=== PATIENT | male | born 1945 | race Caucasian/White ===

== ENCOUNTER → 2024-12-02 15:40 | Outpatient (CLI) | payer MEDICARE, SELFPAY | PROVIDERS: Visit Provider Registered Nurse | DX: R30.0 Dysuria (principal) | CPT/HCPCS: 87077; 87086; 87186 ==

== ENCOUNTER 2025-03-03 15:00 | Inpatient (IN) | payer OTHER, SELFPAY ==
[2025-03-03] VITALS (19 sets, daily range): BP systolic 112–149; BP diastolic 64–83; PULSE 67–111; RESP 20–28; TEMP 36.4; O2SAT 95–100; BMI 28.5
--- NOTE | 2025-03-03 15:40 | DI.RAD.S_ITS ---
PROCEDURE: XR CHEST 1V INDICATIONS: altered mental status TECHNIQUE: One view of the chest was acquired. COMPARISON: None. FINDINGS: Nodular opacities bilaterally. Possible focal right mid lung consolidation. No pneumothorax or pleural effusion. Heart size normal. IMPRESSION: Bilateral pulmonary nodules and or consolidation. Further evaluation with CT chest recommended. Dictated by: Germán Tijerina M.D. on 03/03/2025 at 16:36 Approved by: Germán Tijerina M.D. on 03/03/2025 at 16:38
[2025-03-03 15:55] LABS: Base Excess VBG -18.2 mmol/L (0-4); HCO3 VBG 8 mmol/L (24-28); Oxygen Saturation VBG 75 % (70-75); PCO2 VBG 23.8 mmHg (45-50); PO2 VBG 50 mmHg (35-45); Total CO2 VBG 8 mmol/L (24-29); pH VBG 7.16 (7.33-7.43)
--- NOTE | 2025-03-03 15:55 | ED_ITS ---
HPI - General Adult General Chief complaint: Diabetic Problem Stated complaint: pcp ref-blod in urine/diabetic problem/weakness Time Seen by Provider: 03/03/25 15:55 Source: patient Mode of arrival: Family Vehicle History of Present Illness HPI narrative: 79-year-old gentleman recently diagnosed with type 2 diabetes still endorses polyuria polydipsia and has not been able to get his medicines as they are male ordered recently treated for UTI presents with elevated blood sugar, weak and sleepy. Granddaughter notices he has got a scab wound on his chest that has been there for many years that has never completely healed. Patient denies any chest pain, sorethroat, n/v/d, rectal bleeding, abd pain or back pain. Other than what is stated 14 pt ROS is negative. Related Data Allergies Allergy/AdvReac Type Severity Reaction Status Date / Time No Known Drug Allergies Allergy Unverified 12/02/24 15:55 Review of Systems Review of Systems ROS Unobtainable: All systems reviewed & are unremarkable except as noted in HPI and below Exam Narrative Exam Narrative: GENERAL: [79] year old patient appears stated age. Well-developed patient, in mild distress. HEAD: Atraumatic. Normocephalic. EYES: Pupils equal round and reactive. Extraocular motions intact. No scleral icterus. No injection or drainage. ENT: Nose without bleeding, purulent drainage. Throat without erythema, tonsillar hypertrophy or exudate. Airway patent. NECK: Trachea midline. Non tender CARDIOVASCULAR: Regular rate and rhythm without murmurs, gallops, or rubs. RESPIRATORY: Clear to auscultation. Breath sounds equal bilaterally. No wheezes, rales, or rhonchi. GASTROINTESTINAL: Abdomen soft, non-tender, nondistended. EXTREMITIES: No edema or joint tenderness. BACK: Nontender without deformity or crepitance. No flank tenderness. NEURO: AOx3. SKIN: No rash or erythema of visible areas Initial Vital Signs Initial Vital Signs: Vital Signs Temperature 97.5 F L 03/03/25 15:29 Pulse Rate 111 H 03/03/25 15:29 Respiratory Rate 28 H 03/03/25 15:29 Blood Pressure 118/77 03/03/25 15:29 Pulse Oximetry 98 03/03/25 15:29 Oxygen Delivery Method Room Air 03/03/25 15:29 Course Orders Ordered: ED Orders 03/03/25 15:39 VBG [Venous Blood Gas] STAT 03/03/25 15:40 XR chest 1V Stat EKG-12 Lead Stat 03/03/25 15:50 Complete Blood Count AUTO DIFF Stat Comprehensive Metabolic Panel Stat Ketones (Beta-Hydroxybutyrate) Stat Lactate (Lactic Acid) Stat Procalcitonin Stat Respiratory Panel (Film Array) Stat Troponin & CK Cardiac Panel Stat Venous Blood Gas Routine 03/03/25 17:02 CT chest wo con Stat 03/03/25 18:15 CMP [Comprehensive Metabolic Panel] Stat INSULIN DRIP PREMIX (Myxredlin Drip Premix) 100 unit in 100 mls @ 10.07 mls/hr IV TITRATE CHRISTEL; Protocol Last Admin: 03/03/25 17:13 Dose: 0.1 unit/kg/hr, 10.07 mls/hr Documented By: VLADIMIR Co-signed By: BILLY Sodium Chloride (Normal Saline 0.9%) 1,000 mls @ 250 mls/hr IV CONT CHRISTEL Last Admin: 03/03/25 18:10 Dose: 250 mls/hr Documented By: VLADIMIR Sodium Chloride (Normal Saline 0.9%) 1,000 mls @ 1,000 mls/hr IV BOLUS ONE Stop: 03/03/25 19:07 Last Admin: 03/03/25 18:10 Dose: 1,000 mls/hr Documented By: VLADIMIR Discontinued Medications Sodium Chloride (Normal Saline 0.9%) 1,000 mls @ 1,000 mls/hr IV BOLUS ONE Stop: 03/03/25 16:55 Last Infusion: 03/03/25 18:00 Dose: Infused Documented By: Admin: 03/03/25 16:10 Dose: 1,000 mls/hr Documented By: YAA Ceftriaxone Sodium 2,000 mg/ (Sodium Chloride) 100 mls @ 200 mls/hr IV NOW ONE Stop: 03/03/25 16:00 Last Infusion: 03/03/25 17:49 Dose: Infused Documented By: Admin: 03/03/25 16:39 Dose: 200 mls/hr Documented By: GREGOR Sodium Chloride (Normal Saline 0.9%) 1,000 mls @ 1,000 mls/hr IV BOLUS ONE Stop: 03/03/25 16:58 Last Infusion: 03/03/25 18:00 Dose: Infused Documented By: Admin: 03/03/25 17:00 Dose: 1,000 mls/hr Documented By: VLADIMIR Insulin Human Regular (Insulin Regular 100 Unit/Ml 3 Ml Vial) 10 unit IV NOW ONE Stop: 03/03/25 16:00 Last Admin: 03/03/25 16:39 Dose: 10 unit Documented By: GREGOR Co-signed By: VLADIMIR Vital Signs Vital signs: Vital Signs - 8 hr 03/03/25 15:29 03/03/25 16:14 03/03/25 16:18 Temperature 97.5 F L Pulse Rate 111 H 97 H Respiratory Rate 28 H 25 H Blood Pressure 118/77 141/66 H Pulse Oximetry 98 100 Oxygen Delivery Method Room Air 03/03/25 16:19 03/03/25 16:19 03/03/25 16:30 Temperature Pulse Rate 92 H 97 H Respiratory Rate 25 H 24 Blood Pressure 149/72 H Pulse Oximetry 100 99 Oxygen Delivery Method 03/03/25 16:58 03/03/25 16:58 03/03/25 17:00 Temperature Pulse Rate 92 H 96 H Respiratory Rate 24 22 Blood Pressure 124/64 Pulse Oximetry 100 98 Oxygen Delivery Method 03/03/25 17:00 03/03/25 17:30 03/03/25 17:30 Temperature Pulse Rate 88 Respiratory Rate 23 Blood Pressure 137/72 131/79 Pulse Oximetry 98 Oxygen Delivery Method 03/03/25 18:00 03/03/25 18:00 03/03/25 18:30 Temperature Pulse Rate 91 H Respiratory Rate 26 H Blood Pressure 112/72 121/69 Pulse Oximetry 96 Oxygen Delivery Method 03/03/25 18:30 Temperature Pulse Rate 90 Respiratory Rate 25 H Blood Pressure Pulse Oximetry 98 Oxygen Delivery Method Room Air Medical Decision Making Lab Data 03/03/25 15:50 03/03/25 18:15 Labs: Lab Results 03/03/25 03/03/25 03/03/25 Range/Units 15:48 15:50 17:34 WBC 21.3 H (4.5-11.0) X10^3/uL RBC 5.24 (4.5-5.9) X10^6/uL Hgb 15.8 (13.5-17.5) g/dL Hct 49.2 (41-53) % MCV 93.8 (80-100) fL MCH 30.1 (26-34) PG MCHC 32.1 (30-36) % RDW 13.8 (11.6-14.8) % Plt Count 177 (150-400) X10^3/uL Neut % (Auto) 88.1 H (50-75) % Lymph % (Auto) 3.6 L (25-40) % Crowley % (Auto) 8.1 (3-14) % Eos % (Auto) 0.0 L (2-4) % Baso % (Auto) 0.2 (0-2) % Neut # (Auto) 53285 H (0022-3273) /uL Lymph # (Auto) 800 L (0082-9409) /uL Crowley # (Auto) 1700 H (0-900) /uL Eos # (Auto) 0 (0-450) /uL Baso # (Auto) 100 (0-100) /uL VBG pH 7.16 L* (7.33-7.43) VBG pCO2 23.8 L (45-50) mmHg VBG pO2 50 H (35-45) mmHg VBG HCO3 8 L (24-28) mmol/L VBG Total CO2 8 L (24-29) mmol/L VBG O2 Saturation 75 (70-75) % VBG Base Excess -18.2 L (0-4) mmol/L Sodium 123 L (137-145) mmol/L Potassium 5.2 H (3.4-5.1) mmol/L Chloride 84 L (98-107) mmol/L Carbon Dioxide 6 L* (22-32) mmol/L BUN 78 H (9-20) mg/dL Creatinine 2.55 H (0.66-1.25) mg/dL Estimated GFR 25 L (>60) mL/min BUN/Creatinine Ratio 30.6 H (6-22) Glucose 795 H* (70-99) mg/dL POC Whole Bld Glucose > 500 H* > 500 H* (70-99) mg/dL Lactate 2.4 H (0.7-2.1) mmol/L Calcium 9.0 (8.4-10.2) mg/dL Total Bilirubin 1.0 (0.2-1.3) mg/dL AST 200 H (17-59) IU/L ALT 167 H (<50) IU/L Alkaline Phosphatase 108 (38-126) U/L Total Creatine Kinase 42 L (55-170) U/L Troponin I < 0.012 (0.01-0.034) ng/mL Total Protein 7.4 (6.3-8.2) g/dL Albumin 4.1 (3.5-5.0) g/dL Globulin 3.3 (1.7-4.1) g/dL Albumin/Globulin Ratio 1.2 (1.0-2.8) Procalcitonin 4.23 H (<0.5) ng/mL Ketones 12.4 H (<0.27) mmol/L Chlamy pneumoniae PCR Not detected (Not Detect) Adenovirus (PCR) Not detected (Not Detect) B. pertussis DNA (PCR) Not detected (Not Detect) B.parapertussis DNA PCR Not detected (Not Detecte) Coronavirus OC43 (PCR) Not detected (Not Detect) Coronavirus HKU1 (PCR) Not detected (Not Detect) Coronavirus 229E (PCR) Not detected (Not Detect) SARS-CoV-2 (PCR) Not detected (Not Detecte) Coronavirus NL63 (PCR) Not detected (Not Detect) Human Metapneumovir PCR Not detected (Not Detect) Influenza Type A (PCR) Not detected (Not Detect) Influenza Type B (PCR) Not detected (Not Detect) M. pneumoniae (PCR) Not detected (Not Detect) Parainfluenza 1 (PCR) Not detected (Not Detect) Parainfluenza 2 (PCR) Not detected (Not Detect) Parainfluenza 3 (PCR) Not detected (Not Detect) Parainfluenza 4 (PCR) Not detected (Not Detect) RSV (PCR) Not detected (Not Detect) Entero/Rhino (PCR) Not detected (Not Detect) 03/03/25 03/03/25 Range/Units 18:15 18:37 WBC (4.5-11.0) X10^3/uL RBC (4.5-5.9) X10^6/uL Hgb (13.5-17.5) g/dL Hct (41-53) % MCV (80-100) fL MCH (26-34) PG MCHC (30-36) % RDW (11.6-14.8) % Plt Count (150-400) X10^3/uL Neut % (Auto) (50-75) % Lymph % (Auto) (25-40) % Crowley % (Auto) (3-14) % Eos % (Auto) (2-4) % Baso % (Auto) (0-2) % Neut # (Auto) (1580-9789) /uL Lymph # (Auto) (6611-7278) /uL Crowley # (Auto) (0-900) /uL Eos # (Auto) (0-450) /uL Baso # (Auto) (0-100) /uL VBG pH (7.33-7.43) VBG pCO2 (45-50) mmHg VBG pO2 (35-45) mmHg VBG HCO3 (24-28) mmol/L VBG Total CO2 (24-29) mmol/L VBG O2 Saturation (70-75) % VBG Base Excess (0-4) mmol/L Sodium 127 L (137-145) mmol/L Potassium 4.2 (3.4-5.1) mmol/L Chloride 94 L (98-107) mmol/L Carbon Dioxide 7 L* (22-32) mmol/L BUN 78 H (9-20) mg/dL Creatinine 2.19 H (0.66-1.25) mg/dL Estimated GFR 30 L (>60) mL/min BUN/Creatinine Ratio 35.6 H (6-22) Glucose 606 H* (70-99) mg/dL POC Whole Bld Glucose > 500 H* (70-99) mg/dL Lactate 1.9 (0.7-2.1) mmol/L Calcium 8.1 L (8.4-10.2) mg/dL Total Bilirubin 0.8 (0.2-1.3) mg/dL AST 189 H (17-59) IU/L ALT 150 H (<50) IU/L Alkaline Phosphatase 72 (38-126) U/L Total Creatine Kinase (55-170) U/L Troponin I (0.01-0.034) ng/mL Total Protein 6.5 (6.3-8.2) g/dL Albumin 3.5 (3.5-5.0) g/dL Globulin 3.0 (1.7-4.1) g/dL Albumin/Globulin Ratio 1.2 (1.0-2.8) Procalcitonin (<0.5) ng/mL Ketones (<0.27) mmol/L Chlamy pneumoniae PCR (Not Detect) Adenovirus (PCR) (Not Detect) B. pertussis DNA (PCR) (Not Detect) B.parapertussis DNA PCR (Not Detecte) Coronavirus OC43 (PCR) (Not Detect) Coronavirus HKU1 (PCR) (Not Detect) Coronavirus 229E (PCR) (Not Detect) SARS-CoV-2 (PCR) (Not Detecte) Coronavirus NL63 (PCR) (Not Detect) Human Metapneumovir PCR (Not Detect) Influenza Type A (PCR) (Not Detect) Influenza Type B (PCR) (Not Detect) M. pneumoniae (PCR) (Not Detect) Parainfluenza 1 (PCR) (Not Detect) Parainfluenza 2 (PCR) (Not Detect) Parainfluenza 3 (PCR) (Not Detect) Parainfluenza 4 (PCR) (Not Detect) RSV (PCR) (Not Detect) Entero/Rhino (PCR) (Not Detect) Imaging Data CT scan - chest: Radiologist's Impression: [place] [address] CT Scan Report Signed Patient: Bharath Eduardo MR#: [id number] : 1945 Acct:[id number] Age/Sex: 79 / M Date of Service: 03/03/25 Loc: ED Accession Number: [id number] Procedure: CT chest wo con Ordering Provider: Eusebio Grissom D.O. PROCEDURE: CT CHEST WO CON INDICATIONS: xray recommendation TECHNIQUE: Noncontrast 5 mm thick sections acquired from the pulmonary apices to the posterior costophrenic angles. 1 mm lung window, 5 mm thick coronal and sagittal and 7 mm axial MIP reformats were then acquired. For radiation dose reduction, the following was used: automated exposure control, adjustment of mA and/or kV according to patient size. COMPARISON: [facility], , XR CHEST 1V, 03/03/2025, 16:17. FINDINGS: Image quality: Diagnostic. Respiratory motion. Beam hardening artifact. Lower Neck: No enlarged lymph nodes. Thyroid: No thyroid nodules which require sonographic follow up, per consensus guidelines. Axillae: No enlarged lymph nodes. Chest Wall: Shrapnel at the right upper extremity. Bones: No suspicious osseous lesion is seen. Lungs and Pleura: Accounting for the respiratory motion. Suspect small areas of platelike opacity which are most likely due to atelectasis or motion artifact. There are a few areas of bronchial wall thickening. Image acquisition is at the expiratory phase. Multiple small calcified pleural plaques. No pleural effusion. Heart: Heart size is normal. Three-vessel coronary artery calcifications. No pericardial effusion. Thoracic Vessels: Ascending aorta measures approximately 4.1 cm. Mediastinum and Taina: No enlarged lymph nodes. Esophagus: No wall thickening. No hiatal hernia. Upper Abdomen: Hepatic steatosis. IMPRESSION: Image quality is degraded by artifact. 1. Areas of bronchial wall thickening. This could be due to bronchitis. 2. Small calcified pleural plaques. 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 3. No mass or pleural effusion. No enlarged lymph nodes identified. 4. Hepatic steatosis. Dictated by: Lasha Reyes M.D. on 03/03/2025 at 18:43 Approved by: Lasha Reyes M.D. on 03/03/2025 at 18:51 ECG Data Interpretation: Wide QRS RBBB HR 97 NE undetermined QRS [address]-t wave change No previous ekg to compare MDM Narrative Medical decision making narrative: All lab work, vital signs, nurse triage note, medication list, previous ER visits, and all imaging studies reviewed. WBC 21.3 globulin 15 point platelet 177 VBG metabolic acidosis pH 7.16 bicarb of 8 CO2 23.8 base excess -18.2 sodium 123 potassium 5.2 chloride 84 chloride 6 BUN 78 creatinine 2.55 who is 795 lactic acid 2.4 AST 200 ALT 167 procalcitonin 4.23. respiratory panel normal. chest x-ray bilateral pulmonary nodule and/or consolidation recommend CT chest. Patient given normal saline 1L bolus x 2. Regular insulin 10u IV x1. Insulin gtt started. Rocephin 2g IV x1. Case d/w who has graciously accepted pt for inpatient admission Discharge Plan Departure Patient Disposition: Admitted As Inpatient Clinical Impression: DKA (diabetic ketoacidosis)
[2025-03-03 16:07] LABS: Add Manual Diff / Slide Review NO; Hematocrit 49.2 % (41-53); Hemoglobin 15.8 g/dL (13.5-17.5); Lymphocytes Absolute Auto 800 /uL (1100-4500); Mean Corpuscular HGB Conc 32.1 % (30-36); Mean Corpuscular Hemoglobin 30.1 PG (26-34); Mean Corpuscular Volume 93.8 fL (80-100); Platelet Count 177 X10^3/uL (150-400)
[2025-03-03] MEDS: SODIUM CHLORIDE 0.9% 1,000 ML 1000 ML IV ×3 (16:10→18:10)
--- NOTE | 2025-03-03 16:13 | EKG_ITS ---
[place] [address] [address] [place] [id number] Test Date: 2025-03-03 Pat Name: Bharath Eduardo Department: [facility] Room: Gender: Male Import Coordinator: ALEIDA EAST : 1945 Requested By: Order Number: [id number] Reading MD: Eusebio Wilson MD Measurements Intervals [place] Rate: 86 P: [place]: QRS: -26 QRSD: 140 T: -17 QT: 428 QTc: 512 Interpretive Statements Atrial fibrillation with premature ventricular or aberrantly conducted complexes Right bundle branch block NO PRIOR TRACING Electronically Signed On 03-04-2025 7:42:08 PST by Eusebio Wilson MD
--- NOTE | 2025-03-03 16:14 | EKG_ITS ---
[facility] [address] [place] [address] Test Date: 2025-03-03 Pat Name: Bharath Eduardo Department: [facility] Room: 230 Gender: Male Manager Market Intelligence: ALEIDA EAST : 1945 Requested By: Order Number: [id number] Reading MD: Eusebio Wilson MD Measurements Intervals [place] Rate: 97 P: [place]: QRS: -24 QRSD: 144 T: -25 QT: 356 QTc: 452 Interpretive Statements Wide QRS rhythm, probably atrial fibrillation Right bundle branch block Electronically Signed On 03-04-2025 7:42:42 PST by Eusebio Wilson MD
[2025-03-03 16:19] LABS: Alanine Aminotransferase 167 IU/L (<50); Albumin 4.1 g/dL (3.5-5.0); Albumin Globulin Ratio 1.2 (1.0-2.8); Alkaline Phosphatase 108 U/L (38-126); Blood Urea Nitrogen 78 mg/dL (9-20); Calcium 9.0 mg/dL (8.4-10.2); Chloride 84 mmol/L (98-107); Creatine Kinase 42 U/L (55-170); Estimated Glomerular Filt Rate 25 mL/min (>60); Globulin 3.3 g/dL (1.7-4.1); HEMOLYSIS < 15 (0-50); Lactate (Lactic Acid) 2.4 mmol/L (0.7-2.1); Potassium 5.2 mmol/L (3.4-5.1); Sodium 123 mmol/L (137-145); Total Protein 7.4 g/dL (6.3-8.2)
[2025-03-03 16:29] LABS: Carbon Dioxide 6 mmol/L (22-32); Glucose 795 mg/dL (70-99)
[2025-03-03 16:32] LABS: Troponin I < 0.012 ng/mL (0.01-0.034)
[2025-03-03 16:36] LABS: Procalcitonin 4.23 ng/mL (<0.5)
[2025-03-03] MEDS: INSULIN REGULAR 100 UNIT/ML 3 ML VIAL 10 UNIT IV (16:39)
[2025-03-03] MEDS: cefTRIAXone 2,000 MG in SODIUM CHLORIDE 0.9% 100 ML 200 MG IV (16:39)
[2025-03-03 16:54] LABS: Coronavirus NL 63 Not Detected (Not Detect); SARS- CoV-2 Not Detected (Not Detecte)
--- NOTE | 2025-03-03 17:02 | DI.CT.S_ITS ---
PROCEDURE: CT CHEST WO CON INDICATIONS: xray recommendation TECHNIQUE: Noncontrast 5 mm thick sections acquired from the pulmonary apices to the posterior costophrenic angles. 1 mm lung window, 5 mm thick coronal and sagittal and 7 mm axial MIP reformats were then acquired. For radiation dose reduction, the following was used: automated exposure control, adjustment of mA and/or kV according to patient size. COMPARISON: [facility], , XR CHEST 1V, 03/03/2025, 16:17. FINDINGS: Image quality: Diagnostic. Respiratory motion. Beam hardening artifact. Lower Neck: No enlarged lymph nodes. Thyroid: No thyroid nodules which require sonographic follow up, per consensus guidelines. Axillae: No enlarged lymph nodes. Chest Wall: Shrapnel at the right upper extremity. Bones: No suspicious osseous lesion is seen. Lungs and Pleura: Accounting for the respiratory motion. Suspect small areas of platelike opacity which are most likely due to atelectasis or motion artifact. There are a few areas of bronchial wall thickening. Image acquisition is at the expiratory phase. Multiple small calcified pleural plaques. No pleural effusion. Heart: Heart size is normal. Three-vessel coronary artery calcifications. No pericardial effusion. Thoracic Vessels: Ascending aorta measures approximately 4.1 cm. Mediastinum and Taina: No enlarged lymph nodes. Esophagus: No wall thickening. No hiatal hernia. Upper Abdomen: Hepatic steatosis. IMPRESSION: Image quality is degraded by artifact. 1. Areas of bronchial wall thickening. This could be due to bronchitis. 2. Small calcified pleural plaques. 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 3. No mass or pleural effusion. No enlarged lymph nodes identified. 4. Hepatic steatosis. Dictated by: Lasha Reyes M.D. on 03/03/2025 at 18:43 Approved by: Lasha Reyes M.D. on 03/03/2025 at 18:51
[2025-03-03 17:07] LABS: Ketones (Beta-Hydroxybutyrate) 12.4 mmol/L (<0.27)
[2025-03-03] MEDS: INSULIN DRIP PREMIX 100 UNIT/100 ML PLAST..BAG 10.07 UNIT IV (17:13)
[2025-03-03 17:39] LABS: Reflexed Lactate in 2 Hours Y
[2025-03-03] MEDS: SODIUM CHLORIDE 0.9% 1,000 ML 250 ML IV (18:10)
[2025-03-03 18:35] LABS: Lactate 2HR (Lactic Acid Rflx) 1.9 mmol/L (0.7-2.1)
[2025-03-03 18:38] LABS: Alanine Aminotransferase 150 IU/L (<50); Albumin 3.5 g/dL (3.5-5.0); Albumin Globulin Ratio 1.2 (1.0-2.8); Alkaline Phosphatase 72 U/L (38-126); Blood Urea Nitrogen 78 mg/dL (9-20); Calcium 8.1 mg/dL (8.4-10.2); Chloride 94 mmol/L (98-107); Estimated Glomerular Filt Rate 30 mL/min (>60); Globulin 3.0 g/dL (1.7-4.1); Potassium 4.2 mmol/L (3.4-5.1); Sodium 127 mmol/L (137-145); Total Protein 6.5 g/dL (6.3-8.2)
[2025-03-03 18:40] LABS: HEMOLYSIS 62 (0-50)
[2025-03-03 18:41] LABS: Carbon Dioxide 7 mmol/L (22-32); Glucose 606 mg/dL (70-99)
[2025-03-03] MEDS: KCL 20 MEQ IN NS 1,000 ML 150 MEQ IV (19:11)
[2025-03-03] MEDS: ONDANSETRON 4 MG/2 ML INJ IV (19:34)
--- NOTE | 2025-03-03 19:44 | CM.DANOTE ---
DCP Assessment Note: Pt is a 79yo male, resident of [facility] [place], is admitted for DKA. Pt lives in a house with his granddaughter, Mojgan. Pt's Primary Care Provider is a provider at the [facility] in [place] and insurance is Medicare. Reviewed chart and discussed with multidisciplinary team pt's medical status and initial discharge needs. Per ED Provider, pt to be admitted to ICU for IV fluids and insulin treatment. DCP met w/patient at bedside; introduced self and role. Patient was found in bed, states he is nauseated and consents to this HAND I BLOCKER calling pt daughter, Kaleigh Eduardo, ph# [phone] (updated in EMR). HAND I BLOCKER called pt daughter, Kaleigh, who states pt was diagnosed with DM-II on Monday, 02/28 and does not have a care plan in place yet. She states pt is independent at baseline, drives himself and uses no DME. Patient has no history of SNF Rehab or home health. Patient daughter states pt will have support of family (daughters) at discharge if needed. Plan: Anticipating discharge home with family support when medically cleared. CM team will follow closely for coordination of discharge plans. GUADALUPE Bacon Discharge Planning/Care Management CM Discharge Assessment Start: 03/03/25 19:42 Freq: Status: Active Protocol: Document 03/03/25 19:42 MW (Rec: 03/03/25 19:44 MW [id number]) Discharge Planning Assessment Assigned Discharge JACOB Monson Trimmer Buffing Wheel Provider [facility] DPOA/Assigned Deejay Forrest Designee Name Contact Information [phone] Advance Directives? No History Provided By Patient,Family Member,Medical Record Has Patient been No admitted in last 30 days? Prior Living House Arrangements Household Members family Type of Drives own vehicle transporation used prior to admit Independent with ADL Yes 's Is patient alert and Yes oriented? Discharge Plan Home Referrals Initiated Land Measurer Review Status In Process Please Provide Date 03/03/25 Initial DC Assessment Was Performed Next Review Type Continued Stay Review
[2025-03-03 20:21] LABS: Bilirubin Urine UA NEGATIVE (NEGATIVE); Glucose Urine UA 3+ g/dL (Negative); Ketones Urine UA 2+ (NEGATIVE); Leukocyte Esterase Urine UA TRACE (NEGATIVE); Nitrite Urine UA POSITIVE (Negative); Occult Blood Urine UA 3+ (Negative); Protein Urine UA 1+ (Negative); Specific Gravity Urine UA 1.015 (1.000-1.035); Urobilinogen Urine UA 0.2 E.U./dL (0.2); pH Urine UA 5.5 (4.5-8.0)
[2025-03-03 20:37] LABS: Appearance Urine UA Slightly Cloudy; Color Urine UA BROWN
[2025-03-03 20:42] LABS: Culture Indicated Urine Specimen Cultured
[2025-03-03 21:27] LABS: Alanine Aminotransferase 160 IU/L (<50); Albumin 3.4 g/dL (3.5-5.0); Albumin Globulin Ratio 1.1 (1.0-2.8); Alkaline Phosphatase 81 U/L (38-126); Blood Urea Nitrogen 77 mg/dL (9-20); Calcium 8.5 mg/dL (8.4-10.2); Carbon Dioxide 13 mmol/L (22-32); Chloride 100 mmol/L (98-107); Estimated Glomerular Filt Rate 36 mL/min (>60); Globulin 3.2 g/dL (1.7-4.1); Glucose 322 mg/dL (70-99); HEMOLYSIS < 15 (0-50); Potassium 4.1 mmol/L (3.4-5.1); Sodium 133 mmol/L (137-145); Total Protein 6.6 g/dL (6.3-8.2)
--- NOTE | 2025-03-03 22:16 | PC.NURSE ---
@2130 while this RN was giving report to ASBESTOS SIDING INSTALLERALEIDA Kaplan, pt in his confused state self removed all working IV's, cardiac monitoring, and found tugging on partida. pt was redirected, cardiac monitoring replaced. New IV's established before bringing pt to ICU.
--- NOTE | 2025-03-03 23:23 | PC.ADMIT ---
Addendum entered by Rosaura Hylton RN 03/04/25 06:23: Again reached out to Hospitalist at 0020, about patients unresolved agitation and received orders for restraints and IV Haldol-moderately effective, less agitated but remains restless. Continually denied pain or nausea, does have intermittent hiccups. Insulin gtt continued throughout the night-see POC CBGs, flowsheet, and Emar. Unable to complete Admit Assessment d/t agitation and confusion. Original Note: 1118 Admission Note: The patient,Bharath Eduardo,79 y/o, was given written information regarding hospital policies, unit procedures and contact persons. Patient's smoking status: . Vital Signs - 8 hr 03/03/25 15:29 03/03/25 16:14 03/03/25 16:18 Temperature 97.5 F L Pulse Rate 111 H 97 H Respiratory Rate 28 H 25 H Blood Pressure 118/77 141/66 H Pulse Oximetry 98 100 Oxygen Delivery Method Room Air 03/03/25 16:19 03/03/25 16:19 03/03/25 16:30 Temperature Pulse Rate 92 H 97 H Respiratory Rate 25 H 24 Blood Pressure 149/72 H Pulse Oximetry 100 99 Oxygen Delivery Method 03/03/25 16:58 03/03/25 16:58 03/03/25 17:00 Temperature Pulse Rate 92 H 96 H Respiratory Rate 24 22 Blood Pressure 124/64 Pulse Oximetry 100 98 Oxygen Delivery Method 03/03/25 17:00 03/03/25 17:30 03/03/25 17:30 Temperature Pulse Rate 88 Respiratory Rate 23 Blood Pressure 137/72 131/79 Pulse Oximetry 98 Oxygen Delivery Method 03/03/25 18:00 03/03/25 18:00 03/03/25 18:30 Temperature Pulse Rate 91 H Respiratory Rate 26 H Blood Pressure 112/72 121/69 Pulse Oximetry 96 Oxygen Delivery Method 03/03/25 18:30 03/03/25 19:00 03/03/25 19:00 Temperature Pulse Rate 90 84 Respiratory Rate 25 H 27 H Blood Pressure 124/70 Pulse Oximetry 98 97 Oxygen Delivery Method Room Air 03/03/25 19:30 03/03/25 19:30 03/03/25 19:45 Temperature Pulse Rate 84 Respiratory Rate 20 Blood Pressure 125/83 124/69 Pulse Oximetry 97 Oxygen Delivery Method Room Air 03/03/25 19:45 03/03/25 20:00 03/03/25 20:30 Temperature Pulse Rate 83 80 77 Respiratory Rate 25 H Blood Pressure Pulse Oximetry 97 97 96 Oxygen Delivery Method 03/03/25 21:00 03/03/25 21:30 03/03/25 21:51 Temperature Pulse Rate 70 67 79 Respiratory Rate 28 H 28 H 25 H Blood Pressure Pulse Oximetry 95 98 Oxygen Delivery Method 03/03/25 21:51 03/03/25 22:00 Temperature Pulse Rate 75 Respiratory Rate 25 H Blood Pressure 136/72 Pulse Oximetry 97 Oxygen Delivery Method Patient brought to ICU room 230 at 2200. Initially confused, mildly restless, and following commands, then became extremely agitated, pulling at IV sites (already pulled 3 out in ED) and Hutton catheter. Not redirectible. Eventually, mitts were attempted, but staff unable to place then on due to patients strength and thrashing. Soft wrist restraints placed on patient, Dr. Salas, [facility] Hospitalist notified via Webex at 2250. Stated OK with no follow up orders, notified again at 2306, no response. Sitter in room with patient, but he remains very agitated.
[2025-03-04] VITALS (33 sets, daily range): BP systolic 101–132; BP diastolic 56–80; PULSE 63–87; RESP 17–33; TEMP 36.1–36.8; O2SAT 93–100
[2025-03-04] MEDS: DEXTROSE 5%-0.45NS W/KCL 20MEQ 1,000 ML 150 MEQ IV ×5 (00:54→23:35)
[2025-03-04] MEDS: HALOPERIDOL 5 MG/ML VIAL IV (00:54)
[2025-03-04 01:38] LABS: Blood Urea Nitrogen 77 mg/dL (9-20); Calcium 8.6 mg/dL (8.4-10.2); Carbon Dioxide 14 mmol/L (22-32); Chloride 105 mmol/L (98-107); Estimated Glomerular Filt Rate 42 mL/min (>60); Glucose 120 mg/dL (70-99); HEMOLYSIS < 15 (0-50); Potassium 4.2 mmol/L (3.4-5.1); Sodium 135 mmol/L (137-145)
[2025-03-04] MEDS: INSULIN DRIP PREMIX 100 UNIT/100 ML PLAST..BAG IV (04:41)
[2025-03-04 05:48] LABS: Add Manual Diff / Slide Review NO; Hematocrit 39.8 % (41-53); Hemoglobin 13.7 g/dL (13.5-17.5); Lymphocytes Absolute Auto 500 /uL (1100-4500); Mean Corpuscular HGB Conc 34.4 % (30-36); Mean Corpuscular Hemoglobin 30.5 PG (26-34); Mean Corpuscular Volume 88.7 fL (80-100); Platelet Count 130 X10^3/uL (150-400)
[2025-03-04 06:10] LABS: Blood Urea Nitrogen 76 mg/dL (9-20); Calcium 8.5 mg/dL (8.4-10.2); Carbon Dioxide 16 mmol/L (22-32); Chloride 108 mmol/L (98-107); Estimated Glomerular Filt Rate 45 mL/min (>60); Glucose 191 mg/dL (70-99); HEMOLYSIS < 15 (0-50); Potassium 4.0 mmol/L (3.4-5.1); Sodium 135 mmol/L (137-145)
[2025-03-04 07:10] LABS: MRSA (Nasal) PCR NOT DETECTED (Not Detect)
[2025-03-04 07:28] LABS: Magnesium 2.6 mg/dL (1.6-2.3); Phosphorous 2.3 mg/dL (2.3-3.7)
[2025-03-04] MEDS: INSULIN GLARGINE 100 UNIT/ML 3ML PEN 10 UNIT SUBCUT (07:42)
[2025-03-04] MEDS: POTASSIUM PHOSPHATE 15 MMOL in SODIUM CHLORIDE 0.9% 250 ML 63.75 MMOL IV (08:55)
[2025-03-04] MEDS: PANTOPRAZOLE DR 40 MG TABLET PO (10:46)
[2025-03-04] MEDS: KCL 20 MEQ IN NS 1,000 ML 150 MEQ IV ×2 (10:46→16:10)
[2025-03-04] MEDS: ENOXAPARIN 40 MG/0.4 ML SYRINGE SUBCUT (10:46)
[2025-03-04 10:56] LABS: Blood Urea Nitrogen 71 mg/dL (9-20); Calcium 8.4 mg/dL (8.4-10.2); Carbon Dioxide 15 mmol/L (22-32); Chloride 110 mmol/L (98-107); Estimated Glomerular Filt Rate 55 mL/min (>60); Glucose 203 mg/dL (70-99); Sodium 135 mmol/L (137-145)
[2025-03-04 10:59] LABS: HEMOLYSIS 186 (0-50); Magnesium 2.6 mg/dL (1.6-2.3); Potassium 4.8 mmol/L (3.4-5.1)
--- NOTE | 2025-03-04 11:29 | DIET.CONS ---
Dietary Consultation Note Admission Date: 03/03/2025 19:08 Assessment: Screened for high BG/recent dx of DM. Per hospitalist in rounds this morning, pt will be appropriate for DM educ tomorrow. F/u tomorrow. Ht: 187.96 cm Wt: 101 kg Last BM: () MNA: Hermilo Score: 16 Diet: 03/04/25 Breakfast Carbohydrate Consistent Diet Diet Modifications: Carbohydrate level: Medium (3 CHO) Bedtime snack: Yes Reflex DM orders: No Food Texture: Level 7 - Regular Liquid Consistency: Level 0 - Thin Labs: RBC 4.49 X10^6/uL (4.5-5.9) L 03/04/25 05:30 Hgb 13.7 g/dL (13.5-17.5) 03/04/25 05:30 Hct 39.8 % (41-53) L 03/04/25 05:30 Creatinine 1.33 mg/dL (0.66-1.25) H 03/04/25 10:32 Lactate 1.9 mmol/L (0.7-2.1) 03/03/25 18:15 Electronically Signed by: Tonya Jones 03/04/25 11:29 Clinical Dietitian [address] [address]
[2025-03-04] MEDS: INSULIN LISPRO 100 UNIT/ML 3ML VIAL SUBCUT ×2 (11:33→11:36)
[2025-03-04] MEDS: INSULIN GLARGINE 100 UNIT/ML 3ML PEN 30 UNIT SUBCUT (11:49)
[2025-03-04] MEDS: INSULIN DRIP PREMIX 100 UNIT/100 ML PLAST..BAG 10.1 UNIT IV (13:05)
--- NOTE | 2025-03-04 14:17 | CM.DPNOTE ---
DCP note SLABBER LIGHT reviewed EMR per RN, off insulin drip, confused still, UTI? brand new Diabetes diagnosis Monday. per provider in morning rounds, will initiate PT/OT when cleared mentally. lives in apt above granddaughter. drafting clerk consulted to meet with granddaughter who prepares a lot of his meals. P: DCP pending mentation improvement and therapy recs. will need to be established with repossession agent prior to DC. continue to follow closely for DCP Coordination JACOB Camarena
[2025-03-04 15:12] LABS: Blood Urea Nitrogen 67 mg/dL (9-20); Calcium 8.1 mg/dL (8.4-10.2); Carbon Dioxide 16 mmol/L (22-32); Chloride 110 mmol/L (98-107); Estimated Glomerular Filt Rate 55 mL/min (>60); Glucose 263 mg/dL (70-99); HEMOLYSIS 30 (0-50); Potassium 4.3 mmol/L (3.4-5.1); Sodium 134 mmol/L (137-145)
--- NOTE | 2025-03-04 16:51 | PM.HP.1 ---
History of Present Illness History of Present Illness Date Patient Seen: 03/04/25 Time Patient Seen: 07:00 Chief complaint: pcp ref-blod in urine/diabetic problem/weakness Narrative: The patient is a 79-year-old male with no significant past medical history who presented to the emergency room with diabetic ketoacidosis. He is unable to provide any history at the time of my initial evaluation. Records were obtained from the [facility] which show that the patient had reached out to the [facility] for a 2 week history of flank pain, frequency every 30 minutes, and fatigue. He also endorsed dysuria. [facility] and the patient had a telehealth appointment yesterday. He was instructed by telehealth to present to the emergency room due to grossly abnormal labs. [facility] history of [facility] and occasional marijuana use for anxiety. The patient is noted to have atrial fibrillation, not previously diagnosed. I did speak with the patient's daughter who reports that she does not think her dad sees a physician on a regular basis. She is not aware of any chronic medical problems or any medications that he takes. She is not aware of any surgeries. Lab studies at presentation notable for WBC 21.3 with repeat this morning of 14.3. VBG with pH 7.16 pCO2 24 PO2 50, sodium 133, CO2 13, creatinine 1.9, glucose 322, AST 186, ALT 160. UA with positive nitrate, 3+ blood, 2+ ketones, 3+ glucose, 1+ protein, trace leukocyte esterase, and 10-30 white blood cells. Urine culture pending. He had a prior E coli resistant to Augmentin, Unasyn, cefazolin, cefuroxime. CT chest difficult to read due to artifact. There are bronchial wall thickening, small pleural plaques, and hepatic steatosis. Plaquing may be from asbestos exposure but will need to gather history from patient. Chest x-ray with bilateral pulmonary nodules or consolidation. [facility] Social History household members: family Meds Home Medications and Allergies Allergies Allergy/AdvReac Type Severity Reaction Status Date / Time No Known Drug Allergies Allergy Unverified 12/02/24 15:55 Review of Systems Review of Systems Narrative: At the time of my evaluation, patient had been given Haldol during the night for agitation and was unable to participate in review of systems. Exam Vital Signs (past 8 hours): - 03/04/25 09:00 03/04/25 09:00 03/04/25 09:30 Temperature Pulse Rate 78 84 Respiratory Rate 32 H 33 H Blood Pressure 123/60 Pulse Oximetry 98 97 Oxygen Delivery Method 03/04/25 10:00 03/04/25 10:00 03/04/25 10:30 Temperature Pulse Rate 77 76 Respiratory Rate 32 H 30 H Blood Pressure 123/66 Pulse Oximetry 98 98 Oxygen Delivery Method 03/04/25 10:59 03/04/25 11:00 03/04/25 11:00 Temperature Pulse Rate 76 76 Respiratory Rate 29 H 31 H Blood Pressure 120/59 L Pulse Oximetry 97 97 Oxygen Delivery Method 03/04/25 11:30 03/04/25 11:59 03/04/25 12:00 Temperature Pulse Rate 72 75 Respiratory Rate 23 26 H Blood Pressure 121/60 Pulse Oximetry 99 100 Oxygen Delivery Method 03/04/25 12:00 03/04/25 12:00 03/04/25 12:30 Temperature Pulse Rate 83 71 Respiratory Rate 28 H 31 H Blood Pressure Pulse Oximetry 99 97 Oxygen Delivery Method Room Air 03/04/25 13:00 03/04/25 13:00 03/04/25 13:10 Temperature 98.3 F Pulse Rate 71 Respiratory Rate 22 Blood Pressure 112/60 Pulse Oximetry 96 Oxygen Delivery Method 03/04/25 13:30 03/04/25 14:00 03/04/25 14:00 Temperature Pulse Rate 74 75 Respiratory Rate 26 H 25 H Blood Pressure 116/63 Pulse Oximetry 95 97 Oxygen Delivery Method 03/04/25 14:30 03/04/25 14:59 03/04/25 15:00 Temperature Pulse Rate 74 87 Respiratory Rate 24 25 H Blood Pressure 118/66 Pulse Oximetry 95 94 Oxygen Delivery Method 03/04/25 15:00 03/04/25 15:30 03/04/25 16:00 Temperature Pulse Rate 79 73 Respiratory Rate 25 H 24 Blood Pressure Pulse Oximetry 96 97 Oxygen Delivery Method Room Air 03/04/25 16:10 03/04/25 16:14 03/04/25 16:14 Temperature Pulse Rate 71 71 Respiratory Rate 20 25 H Blood Pressure 121/56 L Pulse Oximetry 93 Oxygen Delivery Method Oxygen Delivery Method Room Air Narrative Exam Narrative: Vitals reviewed Lethargic, unable to assess orientation, ill-appearing Normocephalic atraumatic, oropharynx dry Irregular rhythm, regular rate, no murmurs Clear to auscultation in bilateral anterior lung dougherty Soft, nontender, nondistended, positive bowel sounds Warm without edema Moving all 4 extremities, grossly nonfocal exam Objective Labs 03/04/25 05:30 03/04/25 14:45 Labs: Laboratory Results - last 24 hr 03/03/25 03/03/25 03/03/25 15:50 17:34 18:15 WBC RBC Hgb Hct MCV MCH MCHC RDW Plt Count Neut % (Auto) Lymph % (Auto) [place] % (Auto) Eos % (Auto) Baso % (Auto) Neut # (Auto) Lymph # (Auto) [place] # (Auto) Eos # (Auto) Baso # (Auto) Sodium 127 L Potassium 4.2 Chloride 94 L Carbon Dioxide 7 L* BUN 78 H Creatinine 2.19 H Estimated GFR 30 L BUN/Creatinine Ratio 35.6 H Glucose 606 H* POC Whole Bld Glucose > 500 H* Lactate 1.9 Calcium 8.1 L Phosphorus Magnesium Total Bilirubin 0.8 AST 189 H ALT 150 H Alkaline Phosphatase 72 Total Protein 6.5 Albumin 3.5 Globulin 3.0 Albumin/Globulin Ratio 1.2 Urine Color Urine Appearance Urine pH Ur Specific Gate Urine Protein Urine Glucose (UA) Urine Ketones Urine Occult Blood Urine Nitrate Urine Bilirubin Urine Urobilinogen Ur Leukocyte Esterase Urine RBC Urine WBC Ur Squamous Epith Cells Urine Bacteria Ur Culture Indicated? Vol Urine Centrifuged Nasal Screen MRSA (PCR) Ketones 12.4 H Chlamy pneumoniae PCR Not detected Adenovirus (PCR) Not detected B. pertussis DNA (PCR) Not detected B.parapertussis DNA PCR Not detected Coronavirus OC43 (PCR) Not detected Coronavirus HKU1 (PCR) Not detected Coronavirus 229E (PCR) Not detected SARS-CoV-2 (PCR) Not detected Coronavirus NL63 (PCR) Not detected Human Metapneumovir PCR Not detected Influenza Type A (PCR) Not detected Influenza Type B (PCR) Not detected M. pneumoniae (PCR) Not detected Parainfluenza 1 (PCR) Not detected Parainfluenza 2 (PCR) Not detected Parainfluenza 3 (PCR) Not detected Parainfluenza 4 (PCR) Not detected RSV (PCR) Not detected Entero/Rhino (PCR) Not detected 03/03/25 03/03/25 03/03/25 18:37 19:28 20:10 WBC RBC Hgb Hct MCV MCH MCHC RDW Plt Count Neut % (Auto) Lymph % (Auto) [place] % (Auto) Eos % (Auto) Baso % (Auto) Neut # (Auto) Lymph # (Auto) [place] # (Auto) Eos # (Auto) Baso # (Auto) Sodium Potassium Chloride Carbon Dioxide BUN Creatinine Estimated GFR BUN/Creatinine Ratio Glucose POC Whole Bld Glucose > 500 H* 496 H* Lactate Calcium Phosphorus Magnesium Total Bilirubin AST ALT Alkaline Phosphatase Total Protein Albumin Globulin Albumin/Globulin Ratio Urine Color Brown Urine Appearance Slightly cloudy Urine pH 5.[address] 1.015 Urine Protein 1+ H Urine Glucose (UA) 3+ H Urine Ketones 2+ H Urine Occult Blood 3+ H Urine Nitrate Positive H Urine Bilirubin Negative Urine Urobilinogen 0.2 Ur Leukocyte Esterase Trace H Urine RBC 1-5/hpf Urine WBC 10-30/hpf H Ur Squamous Epith Cells None seen Urine Bacteria Occasional (0-1) Ur Culture Indicated? Specimen cultured Vol Urine Centrifuged 10ml (spun) Nasal Screen MRSA (PCR) Ketones Chlamy pneumoniae PCR Adenovirus (PCR) B. pertussis DNA (PCR) B.parapertussis DNA PCR Coronavirus OC43 (PCR) Coronavirus HKU1 (PCR) Coronavirus 229E (PCR) SARS-CoV-2 (PCR) Coronavirus NL63 (PCR) Human Metapneumovir PCR Influenza Type A (PCR) Influenza Type B (PCR) M. pneumoniae (PCR) Parainfluenza 1 (PCR) Parainfluenza 2 (PCR) Parainfluenza 3 (PCR) Parainfluenza 4 (PCR) RSV (PCR) Entero/Rhino (PCR) 03/03/25 03/03/25 03/03/25 20:34 21:00 21:25 WBC RBC Hgb Hct MCV MCH MCHC RDW Plt Count Neut % (Auto) Lymph % (Auto) [place] % (Auto) Eos % (Auto) Baso % (Auto) Neut # (Auto) Lymph # (Auto) [place] # (Auto) Eos # (Auto) Baso # (Auto) Sodium 133 L Potassium 4.1 Chloride 100 Carbon Dioxide 13 L BUN 77 H Creatinine 1.90 H Estimated GFR 36 L BUN/Creatinine Ratio 40.5 H Glucose 322 H D POC Whole Bld Glucose > 500 H* 403 H Lactate Calcium 8.5 Phosphorus Magnesium Total Bilirubin 0.7 AST 186 H ALT 160 H Alkaline Phosphatase 81 Total Protein 6.6 Albumin 3.4 L Globulin 3.2 Albumin/Globulin Ratio 1.1 Urine Color Urine Appearance Urine pH Ur Specific Gate Urine Protein Urine Glucose (UA) Urine Ketones Urine Occult Blood Urine Nitrate Urine Bilirubin Urine Urobilinogen Ur Leukocyte Esterase Urine RBC Urine WBC Ur Squamous Epith Cells Urine Bacteria Ur Culture Indicated? Vol Urine Centrifuged Nasal Screen MRSA (PCR) Ketones Chlamy pneumoniae PCR Adenovirus (PCR) B. pertussis DNA (PCR) B.parapertussis DNA PCR Coronavirus OC43 (PCR) Coronavirus HKU1 (PCR) Coronavirus 229E (PCR) SARS-CoV-2 (PCR) Coronavirus NL63 (PCR) Human Metapneumovir PCR Influenza Type A (PCR) Influenza Type B (PCR) M. pneumoniae (PCR) Parainfluenza 1 (PCR) Parainfluenza 2 (PCR) Parainfluenza 3 (PCR) Parainfluenza 4 (PCR) RSV (PCR) Entero/Rhino (PCR) 03/03/25 03/03/25 03/04/25 22:14 23:40 00:43 WBC RBC Hgb Hct MCV MCH MCHC RDW Plt Count Neut % (Auto) Lymph % (Auto) [place] % (Auto) Eos % (Auto) Baso % (Auto) Neut # (Auto) Lymph # (Auto) [place] # (Auto) Eos # (Auto) Baso # (Auto) Sodium Potassium Chloride Carbon Dioxide BUN Creatinine Estimated GFR BUN/Creatinine Ratio Glucose POC Whole Bld Glucose 337 H 278 H 103 H D Lactate Calcium Phosphorus Magnesium Total Bilirubin AST ALT Alkaline Phosphatase Total Protein Albumin Globulin Albumin/Globulin Ratio Urine Color Urine Appearance Urine pH Ur Specific Gate Urine Protein Urine Glucose (UA) Urine Ketones Urine Occult Blood Urine Nitrate Urine Bilirubin Urine Urobilinogen Ur Leukocyte Esterase Urine RBC Urine WBC Ur Squamous Epith Cells Urine Bacteria Ur Culture Indicated? Vol Urine Centrifuged Nasal Screen MRSA (PCR) Ketones Chlamy pneumoniae PCR Adenovirus (PCR) B. pertussis DNA (PCR) B.parapertussis DNA PCR Coronavirus OC43 (PCR) Coronavirus HKU1 (PCR) Coronavirus 229E (PCR) SARS-CoV-2 (PCR) Coronavirus NL63 (PCR) Human Metapneumovir PCR Influenza Type A (PCR) Influenza Type B (PCR) M. pneumoniae (PCR) Parainfluenza 1 (PCR) Parainfluenza 2 (PCR) Parainfluenza 3 (PCR) Parainfluenza 4 (PCR) RSV (PCR) Entero/Rhino (PCR) 03/04/25 03/04/25 03/04/25 01:05 01:32 02:38 WBC RBC Hgb Hct MCV MCH MCHC RDW Plt Count Neut % (Auto) Lymph % (Auto) [place] % (Auto) Eos % (Auto) Baso % (Auto) Neut # (Auto) Lymph # (Auto) [place] # (Auto) Eos # (Auto) Baso # (Auto) Sodium 135 L Potassium 4.2 Chloride 105 Carbon Dioxide 14 L BUN 77 H Creatinine 1.65 H Estimated GFR 42 L BUN/Creatinine Ratio 46.7 H Glucose 120 H D POC Whole Bld Glucose 141 H 211 H Lactate Calcium 8.6 Phosphorus Magnesium Total Bilirubin AST ALT Alkaline Phosphatase Total Protein Albumin Globulin Albumin/Globulin Ratio Urine Color Urine Appearance Urine pH Ur Specific Gate Urine Protein Urine Glucose (UA) Urine Ketones Urine Occult Blood Urine Nitrate Urine Bilirubin Urine Urobilinogen Ur Leukocyte Esterase Urine RBC Urine WBC Ur Squamous Epith Cells Urine Bacteria Ur Culture Indicated? Vol Urine Centrifuged Nasal Screen MRSA (PCR) Ketones Chlamy pneumoniae PCR Adenovirus (PCR) B. pertussis DNA (PCR) B.parapertussis DNA PCR Coronavirus OC43 (PCR) Coronavirus HKU1 (PCR) Coronavirus 229E (PCR) SARS-CoV-2 (PCR) Coronavirus NL63 (PCR) Human Metapneumovir PCR Influenza Type A (PCR) Influenza Type B (PCR) M. pneumoniae (PCR) Parainfluenza 1 (PCR) Parainfluenza 2 (PCR) Parainfluenza 3 (PCR) Parainfluenza 4 (PCR) RSV (PCR) Entero/Rhino (PCR) 03/04/25 03/04/25 03/04/25 03:29 04:36 05:25 WBC RBC Hgb Hct MCV MCH MCHC RDW Plt Count Neut % (Auto) Lymph % (Auto) [place] % (Auto) Eos % (Auto) Baso % (Auto) Neut # (Auto) Lymph # (Auto) [place] # (Auto) Eos # (Auto) Baso # (Auto) Sodium Potassium Chloride Carbon Dioxide BUN Creatinine Estimated GFR BUN/Creatinine Ratio Glucose POC Whole Bld Glucose 217 H 173 H Lactate Calcium Phosphorus Magnesium Total Bilirubin AST ALT Alkaline Phosphatase Total Protein Albumin Globulin Albumin/Globulin Ratio Urine Color Urine Appearance Urine pH Ur Specific Gate Urine Protein Urine Glucose (UA) Urine Ketones Urine Occult Blood Urine Nitrate Urine Bilirubin Urine Urobilinogen Ur Leukocyte Esterase Urine RBC Urine WBC Ur Squamous Epith Cells Urine Bacteria Ur Culture Indicated? Vol Urine Centrifuged Nasal Screen MRSA (PCR) Not detected Ketones Chlamy pneumoniae PCR Adenovirus (PCR) B. pertussis DNA (PCR) B.parapertussis DNA PCR Coronavirus OC43 (PCR) Coronavirus HKU1 (PCR) Coronavirus 229E (PCR) SARS-CoV-2 (PCR) Coronavirus NL63 (PCR) Human Metapneumovir PCR Influenza Type A (PCR) Influenza Type B (PCR) M. pneumoniae (PCR) Parainfluenza 1 (PCR) Parainfluenza 2 (PCR) Parainfluenza 3 (PCR) Parainfluenza 4 (PCR) RSV (PCR) Entero/Rhino (PCR) 03/04/25 03/04/25 03/04/25 05:30 05:45 06:39 WBC 14.3 H RBC 4.49 L Hgb 13.7 Hct 39.8 L MCV 88.7 D MCH 30.5 MCHC 34.4 RDW 13.2 Plt Count 130 L Neut % (Auto) 87.5 H Lymph % (Auto) 3.4 L [place] % (Auto) 8.7 Eos % (Auto) 0.1 L Baso % (Auto) 0.3 Neut # (Auto) 53124 H Lymph # (Auto) 500 L [place] # (Auto) 1200 H Eos # (Auto) 0 Baso # (Auto) 0 Sodium 135 L Potassium 4.0 Chloride 108 H Carbon Dioxide 16 L BUN 76 H Creatinine 1.57 H Estimated GFR 45 L BUN/Creatinine Ratio 48.4 H Glucose 191 H POC Whole Bld Glucose 208 H 173 H Lactate Calcium 8.5 Phosphorus 2.3 Magnesium 2.6 H Total Bilirubin AST ALT Alkaline Phosphatase Total Protein Albumin Globulin Albumin/Globulin Ratio Urine Color Urine Appearance Urine pH Ur Specific Gate Urine Protein Urine Glucose (UA) Urine Ketones Urine Occult Blood Urine Nitrate Urine Bilirubin Urine Urobilinogen Ur Leukocyte Esterase Urine RBC Urine WBC Ur Squamous Epith Cells Urine Bacteria Ur Culture Indicated? Vol Urine Centrifuged Nasal Screen MRSA (PCR) Ketones Chlamy pneumoniae PCR Adenovirus (PCR) B. pertussis DNA (PCR) B.parapertussis DNA PCR Coronavirus OC43 (PCR) Coronavirus HKU1 (PCR) Coronavirus 229E (PCR) SARS-CoV-2 (PCR) Coronavirus NL63 (PCR) Human Metapneumovir PCR Influenza Type A (PCR) Influenza Type B (PCR) M. pneumoniae (PCR) Parainfluenza 1 (PCR) Parainfluenza 2 (PCR) Parainfluenza 3 (PCR) Parainfluenza 4 (PCR) RSV (PCR) Entero/Rhino (PCR) 03/04/25 03/04/25 03/04/25 07:15 09:13 09:47 WBC RBC Hgb Hct MCV MCH MCHC RDW Plt Count Neut % (Auto) Lymph % (Auto) [place] % (Auto) Eos % (Auto) Baso % (Auto) Neut # (Auto) Lymph # (Auto) [place] # (Auto) Eos # (Auto) Baso # (Auto) Sodium Potassium Chloride Carbon Dioxide BUN Creatinine Estimated GFR BUN/Creatinine Ratio Glucose POC Whole Bld Glucose 177 H 194 H 205 H Lactate Calcium Phosphorus Magnesium Total Bilirubin AST ALT Alkaline Phosphatase Total Protein Albumin Globulin Albumin/Globulin Ratio Urine Color Urine Appearance Urine pH Ur Specific Gate Urine Protein Urine Glucose (UA) Urine Ketones Urine Occult Blood Urine Nitrate Urine Bilirubin Urine Urobilinogen Ur Leukocyte Esterase Urine RBC Urine WBC Ur Squamous Epith Cells Urine Bacteria Ur Culture Indicated? Vol Urine Centrifuged Nasal Screen MRSA (PCR) Ketones Chlamy pneumoniae PCR Adenovirus (PCR) B. pertussis DNA (PCR) B.parapertussis DNA PCR Coronavirus OC43 (PCR) Coronavirus HKU1 (PCR) Coronavirus 229E (PCR) SARS-CoV-2 (PCR) Coronavirus NL63 (PCR) Human Metapneumovir PCR Influenza Type A (PCR) Influenza Type B (PCR) M. pneumoniae (PCR) Parainfluenza 1 (PCR) Parainfluenza 2 (PCR) Parainfluenza 3 (PCR) Parainfluenza 4 (PCR) RSV (PCR) Entero/Rhino (PCR) 03/04/25 03/04/25 03/04/25 10:32 11:16 12:24 WBC RBC Hgb Hct MCV MCH MCHC RDW Plt Count Neut % (Auto) Lymph % (Auto) [place] % (Auto) Eos % (Auto) Baso % (Auto) Neut # (Auto) Lymph # (Auto) [place] # (Auto) Eos # (Auto) Baso # (Auto) Sodium 135 L Potassium 4.8 Chloride 110 H Carbon Dioxide 15 L BUN 71 H Creatinine 1.33 H Estimated GFR 55 L BUN/Creatinine Ratio 53.4 H Glucose 203 H POC Whole Bld Glucose 262 H 292 H Lactate Calcium 8.4 Phosphorus Magnesium 2.6 H Total Bilirubin AST ALT Alkaline Phosphatase Total Protein Albumin Globulin Albumin/Globulin Ratio Urine Color Urine Appearance Urine pH Ur Specific Gate Urine Protein Urine Glucose (UA) Urine Ketones Urine Occult Blood Urine Nitrate Urine Bilirubin Urine Urobilinogen Ur Leukocyte Esterase Urine RBC Urine WBC Ur Squamous Epith Cells Urine Bacteria Ur Culture Indicated? Vol Urine Centrifuged Nasal Screen MRSA (PCR) Ketones Chlamy pneumoniae PCR Adenovirus (PCR) B. pertussis DNA (PCR) B.parapertussis DNA PCR Coronavirus OC43 (PCR) Coronavirus HKU1 (PCR) Coronavirus 229E (PCR) SARS-CoV-2 (PCR) Coronavirus NL63 (PCR) Human Metapneumovir PCR Influenza Type A (PCR) Influenza Type B (PCR) M. pneumoniae (PCR) Parainfluenza 1 (PCR) Parainfluenza 2 (PCR) Parainfluenza 3 (PCR) Parainfluenza 4 (PCR) RSV (PCR) Entero/Rhino (PCR) 03/04/25 03/04/25 03/04/25 13:53 14:45 15:04 WBC RBC Hgb Hct MCV MCH MCHC RDW Plt Count Neut % (Auto) Lymph % (Auto) [place] % (Auto) Eos % (Auto) Baso % (Auto) Neut # (Auto) Lymph # (Auto) [place] # (Auto) Eos # (Auto) Baso # (Auto) Sodium 134 L Potassium 4.3 Chloride 110 H Carbon Dioxide 16 L BUN 67 H Creatinine 1.33 H Estimated GFR 55 L BUN/Creatinine Ratio 50.4 H Glucose 263 H POC Whole Bld Glucose 316 H 254 H Lactate Calcium 8.1 L Phosphorus Magnesium Total Bilirubin AST ALT Alkaline Phosphatase Total Protein Albumin Globulin Albumin/Globulin Ratio Urine Color Urine Appearance Urine pH Ur Specific Gate Urine Protein Urine Glucose (UA) Urine Ketones Urine Occult Blood Urine Nitrate Urine Bilirubin Urine Urobilinogen Ur Leukocyte Esterase Urine RBC Urine WBC Ur Squamous Epith Cells Urine Bacteria Ur Culture Indicated? Vol Urine Centrifuged Nasal Screen MRSA (PCR) Ketones Chlamy pneumoniae PCR Adenovirus (PCR) B. pertussis DNA (PCR) B.parapertussis DNA PCR Coronavirus OC43 (PCR) Coronavirus HKU1 (PCR) Coronavirus 229E (PCR) SARS-CoV-2 (PCR) Coronavirus NL63 (PCR) Human Metapneumovir PCR Influenza Type A (PCR) Influenza Type B (PCR) M. pneumoniae (PCR) Parainfluenza 1 (PCR) Parainfluenza 2 (PCR) Parainfluenza 3 (PCR) Parainfluenza 4 (PCR) RSV (PCR) Entero/Rhino (PCR) 03/04/25 16:14 WBC RBC Hgb Hct MCV MCH MCHC RDW Plt Count Neut % (Auto) Lymph % (Auto) [place] % (Auto) Eos % (Auto) Baso % (Auto) Neut # (Auto) Lymph # (Auto) [place] # (Auto) Eos # (Auto) Baso # (Auto) Sodium Potassium Chloride Carbon Dioxide BUN Creatinine Estimated GFR BUN/Creatinine Ratio Glucose POC Whole Bld Glucose 183 H Lactate Calcium Phosphorus Magnesium Total Bilirubin AST ALT Alkaline Phosphatase Total Protein Albumin Globulin Albumin/Globulin Ratio Urine Color Urine Appearance Urine pH Ur Specific Gate Urine Protein Urine Glucose (UA) Urine Ketones Urine Occult Blood Urine Nitrate Urine Bilirubin Urine Urobilinogen Ur Leukocyte Esterase Urine RBC Urine WBC Ur Squamous Epith Cells Urine Bacteria Ur Culture Indicated? Vol Urine Centrifuged Nasal Screen MRSA (PCR) Ketones Chlamy pneumoniae PCR Adenovirus (PCR) B. pertussis DNA (PCR) B.parapertussis DNA PCR Coronavirus OC43 (PCR) Coronavirus HKU1 (PCR) Coronavirus 229E (PCR) SARS-CoV-2 (PCR) Coronavirus NL63 (PCR) Human Metapneumovir PCR Influenza Type A (PCR) Influenza Type B (PCR) M. pneumoniae (PCR) Parainfluenza 1 (PCR) Parainfluenza 2 (PCR) Parainfluenza 3 (PCR) Parainfluenza 4 (PCR) RSV (PCR) Entero/Rhino (PCR) Assessment & Plan Assessment & Plan narrative: 79-year-old male with no significant past medical history aside from PTSD, [facility], who presented with diabetic ketoacidosis, new diagnosis of diabetes mellitus, and new atrial fibrillation. Diabetes mellitus, likely insulin dependent Diabetic ketoacidosis Insulin drip protocol Transitioned to subcu insulin when acidosis resolves Continue to monitor labs and replete electrolytes as needed Diabetes education and nutrition education when patient able to participate Anticipate he will need to discharge on insulin not oral agents Atrial fibrillation, new Unclear how long patient has been in atrial fibrillation. Initiate metoprolol, low-dose Initiate Eliquis Echocardiogram UTI, probable Leukocytosis Urinalysis abnormal Follow cultures Ceftriaxone ANU Likely secondary to volume depletion from osmotic diuresis due to hyperglycemia, improved overnight. Encourage p.o. fluids Continue IV fluids while on insulin GTT Reassess in the morning Elevated transaminases AST 186, AST 160. Bilirubin normal. No prior labs for comparison. Patient does not consume alcohol per his daughter. He does have steatosis on imaging so the elevated transaminases may be due to that. Elevation could also be due to ketoacidosis and the underlying infection. Recheck in the morning Time-Based Coding :: 80 minutes spent with patient and on the chart (including review of chart, obtaining history, exam, reviewing outside data, placing orders, documenting exam and treatment plan, and counseling patient)
--- NOTE | 2025-03-04 18:03 | PC.NURSE ---
Pt was initially titrated off insulin at beginning of shift, blood sugars continued to climb so the decision was made to restart. Good appetite. Pt sleepy most of shift, more alert and following directions. Restraints dced. Family at bedside. [place] intact with good output. Afib with rate control
[2025-03-04 18:46] LABS: Blood Urea Nitrogen 63 mg/dL (9-20); Calcium 7.9 mg/dL (8.4-10.2); Carbon Dioxide 16 mmol/L (22-32); Chloride 112 mmol/L (98-107); Estimated Glomerular Filt Rate 57 mL/min (>60); Glucose 180 mg/dL (70-99); HEMOLYSIS 21 (0-50); Potassium 4.0 mmol/L (3.4-5.1); Sodium 135 mmol/L (137-145)
--- NOTE | 2025-03-04 19:14 | DI.ECHO.S_ITS ---
[facility] : : [address] : : [place] : : [id number] : : Phone: [phone] Echocardiogram Report + + :Name: JCARLOS AGUAYO Study Date: 03/05/2025 Height: 74 in : :[facility] ReadingLocation: Weight: 220 lb : : Gender: Male BSA: 2.3 m2 : :: 1945 Age: 79 yrs BP: 139/63 mmHg: :Reason For Study: NEW ONSET AFIB : :Ordering Physician: LYNN ESCALANTE : : Performed By: Vasquez Kimball : :Referring: UNSPECIFIED : + + Interpretation Summary The left ventricle is normal in size. Left ventricular systolic function is mildly reduced. The ejection fraction is estimated to be 45-50%. Diastolic function could not be accurately assessed due to atrial fibrillation. The right ventricle is mildly dilated. Right ventricular systolic function is mildly reduced. There is no significant valvular heart disease. The aortic root is mildly dilated. Procedure: A two-dimensional transthoracic echocardiogram with color flow and Doppler was performed. The study quality was technically difficult. A contrast injection of Definity was performed to improve assessment of LV function. There is no prior echocardiogram noted for this patient. The patient was in atrial fibrillation with heart rates between 53-76 bpm during the exam. Left Ventricle: The left ventricle is normal in size. There is normal left ventricular wall thickness. There is no ventricular septal defect visualized. Left ventricular systolic function is mildly reduced. The ejection fraction is estimated to be 45-50%. Diastolic function could not be accurately assessed due to atrial fibrillation. Right Ventricle: The right ventricle is mildly dilated. Right ventricular systolic function is mildly reduced. Atria: The left atrial size is normal. The right atrium is mildly dilated. There is no Doppler evidence for an interatrial shunt. Mitral Valve: The mitral valve leaflets appear mildly thickened. The mitral valve leaflets are mildly calcified. There is mild mitral annular calcification. There is no mitral regurgitation. Aortic Valve: The aortic valve is trileaflet. The aortic valve is mildly calcified. No aortic regurgitation is present. Tricuspid Valve: The tricuspid valve is not well visualized, but is grossly normal. There is a trace or physiologic amount of tricuspid regurgitation. Pulmonic Valve: The pulmonic valve is not well seen, but is grossly normal. There is trace pulmonic regurgitation. There is no significant valvular heart disease. Great Vessels: The aortic root is mildly dilated. The ascending aorta is at the upper limits of normal in size. The pulmonary artery is not well visualized, but is probably normal size. The IVC is dilated, but has some respiratory collapse suggesting high central venous pressure. Pericardium/ Pleura There is no pericardial effusion. There is no pleural effusion. MMode/2D Measurements & Calculations LVIDd: 4.3 cm LVOT diam: 2.0 cm LVIDs: 3.1 cm Ao root diam: 4.1 cm FS: 28.8 % asc Aorta Diam: 3.6 cm EPSS: 0.61 cm IVSd: 0.94 cm LVPWd: 0.94 cm LV banks. diameter/BSA (cm/m^2): 1.9 LV sys. diameter/BSA (cm/m^2): 1.4 LA A2 area: 15.8 cm2 RA long axis: 6.2 cm LA A4 area: 18.6 cm2 RA area: 22.3 cm2 LA length (vol): 5.2 cm RA vol: 67.5 ml LA vol: 47.8 ml RA : 29.8 ml/m2 LA vol index: 21.1 ml/m2 IVC diam: 2.1 cm RVD1 (basal): 4.6 cm RVD2 (mid): 3.4 cm TAPSE: 1.6 cm Doppler Measurements & Calculations Ao V2 max: 135.7 cm/sec LVOT Max Rayray: 81.9 cm/sec Ao V2 mean: 88.8 cm/sec LV V1 max P.7 mmHg Ao max P.4 mmHg LV V1 VTI: 11.9 cm Ao mean P.6 mmHg YUE(I,D): 1.9 cm2 Ao V2 VTI: 19.6 cm YUE(V,D): 1.9 cm2 sev ratio: 0.60 YUE indexed to BSA (cm^2/m^2): 0.86 MV E max rayray: 85.1 cm/sec TR max rayray: 248.1 cm/sec MV A max rayray: 19.2 cm/sec TR max P.6 mmHg MV E/A: 4.4 PA V2 max: 115.2 cm/sec Med Peak E' Rayray: 8.7 cm/sec PA V2 mean: 85.8 cm/sec E/E' med: 9.8 PA mean P.2 mmHg Lat Peak E' Rayray: 10.1 cm/sec PA pr(Accel): 37.9 mmHg E/E' lat: 8.5 E/e' average: 9.1 MV dec time: 0.24 sec SV(LVOT): 38.0 ml Reading Physician:12:55 PM
[2025-03-04] MEDS: APIXABAN 5 MG TABLET PO (20:47)
[2025-03-04] MEDS: METOPROLOL IR 25 MG TABLET PO (20:47)
[2025-03-04] MEDS: INSULIN DRIP PREMIX 100 UNIT/100 ML PLAST..BAG 5.1 UNIT IV (22:16)
[2025-03-04 22:45] LABS: Blood Urea Nitrogen 58 mg/dL (9-20); Calcium 8.5 mg/dL (8.4-10.2); Carbon Dioxide 19 mmol/L (22-32); Chloride 111 mmol/L (98-107); Estimated Glomerular Filt Rate 55 mL/min (>60); Glucose 114 mg/dL (70-99); HEMOLYSIS < 15 (0-50); Potassium 4.1 mmol/L (3.4-5.1); Sodium 138 mmol/L (137-145)
[2025-03-05] VITALS (44 sets, daily range): BP systolic 88–134; BP diastolic 56–72; PULSE 53–79; RESP 16–36; TEMP 36.1–36.6; O2SAT 93–98
[2025-03-05 05:25] LABS: Hemoglobin A1C% w Est Avg Glu 10.5 % (4.0-6.0)
[2025-03-05 05:28] LABS: Phosphorous 2.6 mg/dL (2.3-3.7)
[2025-03-05 05:30] LABS: Alanine Aminotransferase 89 IU/L (<50); Albumin 2.5 g/dL (3.5-5.0); Albumin Globulin Ratio 0.9 (1.0-2.8); Alkaline Phosphatase 62 U/L (38-126); Blood Urea Nitrogen 53 mg/dL (9-20); Calcium 7.9 mg/dL (8.4-10.2); Carbon Dioxide 17 mmol/L (22-32); Chloride 110 mmol/L (98-107); Cholesterol 61 mg/dL (140-199); Estimated Glomerular Filt Rate 58 mL/min (>60); Globulin 2.7 g/dL (1.7-4.1); Glucose 288 mg/dL (70-99); HDL Cholesterol 16 mg/dL (40-60); HEMOLYSIS < 15 (0-50); Potassium 4.8 mmol/L (3.4-5.1); Sodium 134 mmol/L (137-145); Total Protein 5.2 g/dL (6.3-8.2); Triglycerides 81 mg/dL (35-150)
--- NOTE | 2025-03-05 06:46 | PC.NURSE ---
pt a&ox2-3, restless at times, cooperative with care, CBG as ordered, insulin drip titrated per protocol, MD notified when gap closed, orders to stop then restarted when CBG increased per MD orders, afib 45-60s, bed alarm on, call bernal within reach, care ongoing
[2025-03-05] MEDS: PANTOPRAZOLE DR 40 MG TABLET PO (09:15)
[2025-03-05] MEDS: APIXABAN 5 MG TABLET PO ×2 (09:15→21:12)
[2025-03-05] MEDS: METOPROLOL IR 25 MG TABLET 12.5 MG PO ×2 (09:15→21:17)
--- NOTE | 2025-03-05 11:12 | DIET.CONS ---
Dietary Consultation Note Admission Date: 03/03/2025 19:08 Assessment: Met with pt and grandrk Redd at bedside. Tramaine confirms if pt is d/c home they will be helping with meals. Reports struggles may be reducing dessert portions. Ht: 187.96 cm Wt: 101 kg Last BM: () MNA: Hermilo Score: 20 Diet: 03/04/25 Breakfast Carbohydrate Consistent Diet Diet Modifications: Carbohydrate level: Medium (3 CHO) Bedtime snack: Yes Reflex DM orders: No Food Texture: Level 7 - Regular Liquid Consistency: Level 0 - Thin Nutrition Percent Meal Consumed 75% 03/04/25 18:03 Percent Meal Consumed 35 03/04/25 12:36 Labs: RBC 4.49 X10^6/uL (4.5-5.9) L 03/04/25 05:30 Hgb 13.7 g/dL (13.5-17.5) 03/04/25 05:30 Hct 39.8 % (41-53) L 03/04/25 05:30 Creatinine 1.27 mg/dL (0.66-1.25) H 03/05/25 04:40 Hemoglobin A1c 10.5 % (4.0-6.0) H 03/05/25 04:40 Lactate 1.9 mmol/L (0.7-2.1) 03/03/25 18:15 Nutrition Diagnosis: Altered nutrition related lab values r/t endocrine dysfunction as evidenced by A1c 10.5% Interventions: -Plate Method, impact of macronutrients on blood sugar, meal timing, carbohydrate counting, pairing macronutrients and spreading out carbohydrates for better blood glucose management -Recommended servings for carbohydrates at meals and snacks -BG numbers and A1c numbers to aim for from the ADA -Treatment for hypoglycemia in case pt is d/c on insulin and signs/symptoms with handout -Label reading for carbs with handout -Discussed as desired can have referral from PCP to OP DM educ and provided information EER: 45-60 g CHO at meals Monitoring/Evaluations: BG Electronically Signed by: Tonya Jones 03/05/25 11:12 Clinical Dietitian [address] [id number]
[2025-03-05] MEDS: SUCRALFATE 1 GM/10 ML ORAL SUSP PO ×2 (12:39→16:52)
[2025-03-05] MEDS: INSULIN GLARGINE 100 UNIT/ML 3ML PEN 50 UNIT SUBCUT (13:21)
[2025-03-05] MEDS: INSULIN LISPRO 100 UNIT/ML 3ML VIAL SUBCUT ×2 (16:53→21:13)
[2025-03-05] MEDS: INSULIN LISPRO 100 UNIT/ML 3ML VIAL 6 UNIT SUBCUT (16:53)
--- NOTE | 2025-03-05 18:15 | P.PN_ITS ---
Subjective Subjective Date Patient Seen: 03/05/25 Time Patient Seen: 08:00 Interval history: Chief complaint: Encephalopathy and diabetic ketoacidosis History of present illness: 03/04: 79-year-old male with no significant past medical history who presented to the emergency room with diabetic ketoacidosis. He is unable to provide any history at the time of my initial evaluation. Records were obtained from the [facility] which show that [facility] of flank pain, frequency every 30 minutes, and fatigue. He also endorsed dysuria. [facility] on Monday and the patient had a telehealth appointment yesterday. He was instructed by telehealth to present to the emergency room due to grossly abnormal labs. [facility] documented history of PTSD and occasional marijuana use for anxiety. The patient is noted to have atrial fibrillation, not previously diagnosed. I did speak with the patient's daughter who reports that she does not think her dad sees a physician on a regular basis. She is not aware of any chronic medical problems or any medications that he takes. She is not aware of any surgeries. Lab studies at presentation notable for WBC 21.3 with repeat this morning of 14.3. VBG with pH 7.16 pCO2 24 PO2 50, sodium 133, CO2 13, creatinine 1.9, glucose 322, AST 186, ALT 160. UA with positive nitrate, 3+ blood, 2+ ketones, 3+ glucose, 1+ protein, trace leukocyte esterase, and 10-30 white blood cells. Urine culture pending. He had a prior E coli resistant to Augmentin, Unasyn, cefazolin, cefuroxime. CT chest difficult to read due to artifact. There are bronchial wall thickening, small pleural plaques, and hepatic steatosis. Plaquing may be from asbestos exposure but will need to gather history from patient. Chest x-ray with bilateral pulmonary nodules or consolidation. Hospital course: 03/05: Patient is still confused but more cogent 4. Still has not close the anion gap infusion had to be resumed case was discussed with pharmacy starting on basal bolus insulin based on insulin requirements we will need large doses of basal insulin Review of systems: No rigors chills fevers Whole cough shortness for breath No chest pain palpitations No abdominal pain nausea vomiting Appetite is good Physical examination: Very pleasant elderly male Somewhat confused disoriented but is able to carry conversation HEENT unremarkable Heart rate and rhythm regular Lungs clear Abdomen nontender Extremities no edema No motor deficits Assessment and plan: 79-year-old male with no significant past medical history aside from PTSD, normally followed at the [facility], who presented with diabetic ketoacidosis, new diagnosis of diabetes mellitus, and new atrial fibrillation. Diabetes mellitus, likely insulin dependent Diabetic ketoacidosis * Insulin drip protocol * Transitioned to subcu insulin when acidosis resolves * Continue to monitor labs and replete electrolytes as needed * Diabetes education and nutrition education when patient able to participate * Anticipate he will need to discharge on insulin not oral agents Atrial fibrillation, new Unclear how long patient has been in atrial fibrillation. * Initiate metoprolol, low-dose * Initiate Eliquis * Echocardiogram UTI, probable Leukocytosis Urinalysis abnormal * Follow cultures * Ceftriaxone ANU Likely secondary to volume depletion from osmotic diuresis due to hyperglycemia, improved overnight. * Encourage p.o. fluids * Continue IV fluids while on insulin GTT * Reassess in the morning Elevated transaminases AST 186, AST 160. Bilirubin normal. No prior labs for comparison. Patient does not consume alcohol per his daughter. He does have steatosis on imaging so the elevated transaminases may be due to that. Elevation could also be due to ketoacidosis and the underlying infection. * Recheck in the morning DVT prophylax 6 * On Eliquis Code status: * Full code blue Time-Based Coding: * 55 minutes were evaluated in the management this patient including [id number] evaluation review of previous records review of objective findings discussion of case plan with care team including pharmacy Exam Vital Signs (past 8 hours): - 03/05/25 10:30 03/05/25 11:00 03/05/25 11:00 Temperature Pulse Rate 63 57 L Respiratory Rate 20 22 Blood Pressure 109/65 Pulse Oximetry 96 96 Oxygen Delivery Method Oxygen Flow Rate 03/05/25 11:30 03/05/25 11:38 03/05/25 12:00 Temperature 97.8 F Pulse Rate 59 L Respiratory Rate 25 H Blood Pressure 107/62 Pulse Oximetry 97 Oxygen Delivery Method Oxygen Flow Rate 03/05/25 12:00 03/05/25 12:00 03/05/25 12:30 Temperature Pulse Rate 59 L 62 Respiratory Rate 22 30 H Blood Pressure Pulse Oximetry 94 97 Oxygen Delivery Method Room Air Oxygen Flow Rate 03/05/25 13:00 03/05/25 13:00 03/05/25 13:30 Temperature Pulse Rate 62 63 Respiratory Rate 24 22 Blood Pressure 111/72 Pulse Oximetry 96 95 Oxygen Delivery Method Oxygen Flow Rate 03/05/25 14:00 03/05/25 14:00 03/05/25 14:30 Temperature Pulse Rate 62 62 Respiratory Rate 20 20 Blood Pressure 102/66 Pulse Oximetry 95 96 Oxygen Delivery Method Oxygen Flow Rate 03/05/25 15:00 03/05/25 15:01 03/05/25 15:01 Temperature Pulse Rate 60 61 Respiratory Rate 20 20 Blood Pressure 133/59 L Pulse Oximetry 96 97 Oxygen Delivery Method Oxygen Flow Rate 03/05/25 15:30 03/05/25 16:00 03/05/25 16:00 Temperature 97.9 F Pulse Rate 60 60 Respiratory Rate 19 21 Blood Pressure 114/68 Pulse Oximetry 96 95 Oxygen Delivery Method Oxygen Flow Rate 0 03/05/25 16:00 03/05/25 16:30 03/05/25 17:00 Temperature Pulse Rate 62 Respiratory Rate 27 H Blood Pressure 134/71 Pulse Oximetry 95 Oxygen Delivery Method Room Air Oxygen Flow Rate 03/05/25 17:00 03/05/25 17:30 Temperature Pulse Rate 63 59 L Respiratory Rate 30 H 24 Blood Pressure Pulse Oximetry 97 96 Oxygen Delivery Method Oxygen Flow Rate Oxygen Delivery Method Room Air Oxygen Flow Rate 0 Objective Labs 03/04/25 05:30 03/05/25 04:40 Labs: Laboratory Results - last 24 hr 03/04/25 03/04/25 03/04/25 18:10 19:15 20:29 Sodium 135 L Potassium 4.0 Chloride 112 H Carbon Dioxide 16 L BUN 63 H Creatinine 1.28 H Estimated GFR 57 L BUN/Creatinine Ratio 49.2 H Glucose 180 H POC Whole Bld Glucose 191 H 167 H Hemoglobin A1c Calcium 7.9 L Phosphorus Total Bilirubin AST ALT Alkaline Phosphatase Total Protein Albumin Globulin Albumin/Globulin Ratio Triglycerides Cholesterol LDL Cholesterol, Calc HDL Cholesterol 03/04/25 03/04/25 03/04/25 22:15 22:18 23:59 Sodium 138 Potassium 4.1 Chloride 111 H Carbon Dioxide 19 L BUN 58 H Creatinine 1.33 H Estimated GFR 55 L BUN/Creatinine Ratio 43.6 H Glucose 114 H POC Whole Bld Glucose 116 H 152 H Hemoglobin A1c Calcium 8.5 Phosphorus Total Bilirubin AST ALT Alkaline Phosphatase Total Protein Albumin Globulin Albumin/Globulin Ratio Triglycerides Cholesterol LDL Cholesterol, Calc HDL Cholesterol 03/05/25 03/05/25 03/05/25 01:58 04:40 06:12 Sodium 134 L Potassium 4.8 Chloride 110 H Carbon Dioxide 17 L BUN 53 H Creatinine 1.27 H Estimated GFR 58 L BUN/Creatinine Ratio 41.7 H Glucose 288 H D POC Whole Bld Glucose 154 H 279 H D 306 H Hemoglobin A1c 10.5 H Calcium 7.9 L Phosphorus 2.6 Total Bilirubin 0.9 AST 82 H ALT 89 H Alkaline Phosphatase 62 Total Protein 5.2 L Albumin 2.5 L Globulin 2.7 Albumin/Globulin Ratio 0.9 L Triglycerides 81 Cholesterol 61 L LDL Cholesterol, Calc 29 HDL Cholesterol 16 L 03/05/25 03/05/25 03/05/25 07:36 09:42 11:32 Sodium Potassium Chloride Carbon Dioxide BUN Creatinine Estimated GFR BUN/Creatinine Ratio Glucose POC Whole Bld Glucose 233 H 169 H 124 H Hemoglobin A1c Calcium Phosphorus Total Bilirubin AST ALT Alkaline Phosphatase Total Protein Albumin Globulin Albumin/Globulin Ratio Triglycerides Cholesterol LDL Cholesterol, Calc HDL Cholesterol 03/05/25 03/05/25 13:39 16:45 Sodium Potassium Chloride Carbon Dioxide BUN Creatinine Estimated GFR BUN/Creatinine Ratio Glucose POC Whole Bld Glucose 219 H 269 H Hemoglobin A1c Calcium Phosphorus Total Bilirubin AST ALT Alkaline Phosphatase Total Protein Albumin Globulin Albumin/Globulin Ratio Triglycerides Cholesterol LDL Cholesterol, Calc HDL Cholesterol PFSH Social History household members: family Assessment & Plan Time-Based Coding :: [TOTAL MINUTES] spent with patient and on the chart (including review of chart, obtaining history, exam, reviewing outside data, placing orders, documenting exam and treatment plan, and counseling patient) on [DATE].
[2025-03-06] VITALS (64 sets, daily range): BP systolic 90–172; BP diastolic 63–90; PULSE 53–78; RESP 12–37; TEMP 35.7–36.8; O2SAT 91–98
[2025-03-06] MEDS: SUCRALFATE 1 GM/10 ML ORAL SUSP PO ×4 (00:17→17:13)
[2025-03-06] MEDS: ACETAMINOPHEN 325 MG TABLET 650 MG PO (00:17)
[2025-03-06] MEDS: APIXABAN 5 MG TABLET PO ×2 (08:05→21:06)
[2025-03-06] MEDS: METOPROLOL IR 25 MG TABLET 12.5 MG PO (08:05)
[2025-03-06] MEDS: INSULIN GLARGINE 100 UNIT/ML 3ML PEN 60 UNIT SUBCUT (08:05)
[2025-03-06] MEDS: PANTOPRAZOLE DR 40 MG TABLET PO (08:05)
[2025-03-06] MEDS: INSULIN LISPRO 100 UNIT/ML 3ML VIAL 8 UNIT SUBCUT (08:06)
[2025-03-06] MEDS: INSULIN LISPRO 100 UNIT/ML 3ML VIAL SUBCUT ×2 (08:07→12:19)
--- NOTE | 2025-03-06 11:00 | OT.IP.EVAL ---
Current Diagnoses Type 2 diabetes mellitus with ketoacidosis without coma (03/03/25) Occupational Therapy Inpatient Evaluation/Re-Eval M1 OT IP Prior Functional Status Start: 03/06/25 13:07 Freq: Status: Active Protocol: Document 03/06/25 13:07 [facility] (Rec: 03/06/25 13:24 [facility] Desktop) Medical Review Prior Functional Status Communication I Mobility and Gait I and did not use a device but states has had 2 falls in the past 2 weeks. Activities of Daily Pt states completely independent with all ADL and IADL Living and IADL's needs. Prior Functional Pt lives in a apt above her grand daughter's house. Level (Other details ) Social History Household Members family Living Arrangements House Number of Stairs To 12 steps with bilateral rails to his aprt. 5 steps with Enter/Railing? no rails to his grand daughter's house. Pt states could stay at his grand daughter's house if needed. Home Environment Standard Height Toilet,Walk in Shower M2 OT-IP Current Condition Start: 03/06/25 13:07 Freq: Status: Active Protocol: Document 03/06/25 13:07 [facility] (Rec: 03/06/25 13:24 [facility] Desktop) Occupational Therapy Current Condition Current Condition Evaluation Date 03/06/25 Treatment Diagnosis DKA Diagnosis Onset Date 03/03/25 M3 OT- IP Subjective and Pain Start: 03/06/25 13:07 Freq: Status: Active Protocol: Document 03/06/25 13:07 [facility] (Rec: 03/06/25 13:24 [facility] Desktop) OT- Subjective Occupational Therapy Visit Type Type Initial Evaluation Visit Start Time 11:00 Visit Stop Time 11:38 Occupational Therapy Visit Comments Patient Comments Pt agreed to get up. Patient/Caregiver TO go home. Goals OT Pain Assessment Pain When Pain Assessed At Rest Pain Present Pain Present Pain Reported Location Back Pain Behaviors Facial Grimacing M4 OT- IP ADL's Start: 03/06/25 13:07 Freq: Status: Active Protocol: Document 03/06/25 13:07 [facility] (Rec: 03/06/25 13:24 [facility] Desktop) OT ADL-Dressing General Eval Upper Body Dressing Minimal Assistance Ability Lower Body Dressing Minimal Assistance Ability Comments OT Dressing Comments Pt needing assist to help straighten his socks. DILCIA to help change out his gown. OT ADL-Toileting General Evaluation Toileting Ability Minimal Assistance Areas Needing Manage Clothing Assistance Comments OT Toileting Pt able to use urinal with SBA . Comments OT ADL-Bathing Comments OT Bathing Comments Pt will benefit from shower chair at home. Pt able to use wash cloth after set-up to was his chest, arms, and perineal areas. M5 OT- IP IADL's Start: 03/06/25 13:07 Freq: Status: Active Protocol: Document 03/06/25 13:07 [facility] (Rec: 03/06/25 13:24 [facility] Desktop) OT-Instrumental Activities of Daily Living Medication Management Medication Pt has not been able to manage his blood sugars well at Management Comments home. M6 OT- IP Functional Cognition Start: 03/06/25 13:07 Freq: Status: Active Protocol: Document 03/06/25 13:07 [facility] (Rec: 03/06/25 13:24 [facility] Desktop) Cognitive Factors Limiting Selfcare Function Cognitive Ability Level of Alertness Alert Patient Orientation Name,Age,Year,Place,Situation Attention Span Capable of Focused Attention,Capable of Sustained Ability Attention Ability to Follow Able to Follow One Step Commands Commands Cognitive Comments Cognitive Assessment Pt able to follow commands for ADL and mobility needs. Comments Pt will benefit from SLUMS. OT- Vision and Hearing OT- Hearing Assessment OT- Hearing Hearing Impaired Assessment OT- Vision Assessment Visual Acuity WFL Visual Attentiveness WFL Occular Pursuits WFL M7 OT- IP Mobility and Balance Start: 03/06/25 13:07 Freq: Status: Active Protocol: Document 03/06/25 13:07 [facility] (Rec: 03/06/25 13:24 [facility] Desktop) OT- Bed Mobility Assessment Supine to Sit Supine to Sit Assist Minimal Assistance OT-Transfer Assessment Sit to and From Stand Sit to and from Minimal Assistance Stand Transfers Transfer Ability Minimal Assistance Technique Transfer Destination Bed,Chair Comments Mobility Comments DILCIA as pt pulling on PT's hand to get upright. DILCIA to stand and transfer with FWW. BP Supine 117/71, sitting 110/67, standing 90/67 and after in the recliner 103/ 73. Pt complaining of being dizzy, nursing notified. Also suggested pt have a chair alarm, nursing states pt has been appropriate to call for assistance. OT- Balance Assessment Sitting Balance and Reactions Static Sitting Normal Balance Ability Dynamic Sitting Good Balance Ability Standing Balance and Reactions Static Standing Fair Balance Ability Dynamic Standing Fair Balance Ability M8 OT- IP Objective Assessments Start: 03/06/25 13:07 Freq: Status: Active Protocol: Document 03/06/25 13:07 [facility] (Rec: 03/06/25 13:24 [facility] Desktop) OT Gross Range of Motion Upper Extremity Range of Motion Assessment Within Functional Limits OT Strength Upper Extremity Strength Assessment Within Functional Limits M9 OT- IP Assessment and Plan Start: 03/06/25 13:07 Freq: Status: Active Protocol: Document 03/06/25 13:07 [facility] (Rec: 03/06/25 13:24 [facility] Desktop) OT Summary Assessment and Plan Potential Rehabilitation Good Potential Analytic Complexity Moderate at Evaluation Summary OT Impairments Balance,Functional Cognition,Functional Mobility, Grooming,Dressing,Toileting,Bathing,Toilet Transfers, Shower Transfers,Activity Tolerance Progress Towards Slow Progress due to Medical Issues Goals Assessment Summary Pt MOD complexity and main barriers are steps, low BP and hypotensive, decreased balance and activity tolerance. Pt prior was I with all needs however pt admits to falls twice in the past two weeks. Pt will benefit from skilled rehab prior to going home. Goals Self-Feeding Goal Independent Grooming Goal Independent Dressing Goal Independent Toileting Goal Independent Bathing Goal Independent Toilet Transfer Goal Independent Shower Transfer Goal Independent Days to Meet Goals 15 Frequency of Treatment Other frequency 5x/week Treatment Plan OT Treatment Plan ADL Training,Functional Cognition Training,Patient/ Family Education,Discharge Planning Other Treatment SLUMS Recommendations and Next Treatment Focus Discharge Recommendations OT Discharge SNF Rehab Recommendations Home Equipment Needs shower chair, FWW Transportation Needs Private Vehicle,Wheelchair/Cabulance at Discharge
--- NOTE | 2025-03-06 11:27 | PT.IIE ---
Current Diagnoses Type 2 diabetes mellitus with ketoacidosis without coma (03/03/25) Physical Therapy Inpatient Evaluation/Re-Eval M1 PT IP Prior Functional Status Start: 03/06/25 13:10 Freq: Status: Active Protocol: Document 03/06/25 13:11 NW (Rec: 03/06/25 13:26 NW [id number]) Medical Review Social History Household Members family Living Arrangements House Number of Floors ( Two Floors Floors) Number of Stairs To 12 with bilateral railing, additional 5 steps after Enter/Railing? walk way into grand daughters house Home Environment Standard Height Toilet,Walk in Shower Employment Status Retired Additional Social Pt states he has had several falls in last 6 months History Comment with no known cause M2 PT-IP Current Condition Start: 03/06/25 13:10 Freq: Status: Active Protocol: Document 03/06/25 13:11 NW (Rec: 03/06/25 13:26 NW [id number]) Physical Therapy Current Condition Current Condition Evaluation Date 03/06/25 Treatment Diagnosis DKA, Falls, Debility Onset Date 03/03/25 M3 PT-IP Subjective Start: 03/06/25 13:10 Freq: Status: Active Protocol: Document 03/06/25 13:11 NW (Rec: 03/06/25 13:26 NW [id number]) Subjective Physical Therapy Visit Type Type Initial Evaluation Visit Start Time 11:00 Visit Stop Time 11:27 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 States he has not been out of bed for a few days. Patient Goals Get stronger and go home M4 PT-IP Mobility and Gait Start: 03/06/25 13:10 Freq: Status: Active Protocol: Document 03/06/25 13:11 NW (Rec: 03/06/25 13:26 NW [id number]) PT-Bed Mobility Assessment Supine to Sit Supine to Sit Minimal Assistance,1 Person Assistance,Bedrails Scooting Scooting to Edge of Minimal Assistance Bed Scooting Up and Down Standby Assistance in Bed PT-Transfer Assessment Sit to and From Stand Sit to and from Contact Guard Assistance,1 Person Assistance,Use of Stand Upper Extremities Equipment Transfer Assistive Gait Belt,Front Wheeled Walker Device Transfers Transfer Destination Chair Transfer Technique Stand Step Pivot Transfer Ability Level of Assist Contact Guard Assistance Comments Mobility Comments Adequate power production from elevated surface with cues on AD management for UE placement. Upon stance utilizes posterior support to stabilize and maintain upright, able to be cued to stand with only UE support on FWW. Small steps with transfer to bed side chair. Pt does have signs and symptoms of orthostatic hypotension, is able to manage to perform necessary transfer. BP: supine 117/71--> 110/67 seated --> 90/67standing with symptoms --> resting in bed side chair after second stance 103/73 Gait Assessment Comments Gait Comments Unable secondary to orthostatic hypotension. PT-Balance Assessment Sitting Balance and Reactions Static Sitting Good Balance Ability Dynamic Sitting Fair Balance Ability Standing Balance and Reactions Static Standing Fair Balance Ability Dynamic Standing Poor Balance Ability Device Used FWW M5 PT-IP Objective Assessments Start: 03/06/25 13:10 Freq: Status: Active Protocol: Document 03/06/25 13:11 NW (Rec: 03/06/25 13:26 NW [id number]) Orientation Orientation/Cognition Level of Alertness Alert Orientation Name,Year,Place,Situation Comments appears to be confused with regards to timeline and time spent in hospital Gross Range of Motion Lower Extremity ROM Assessment Within Functional Limits Strength Lower Extremity Strength Assessment Within Functional Limits Sensation Assessment Sensation Gross Sensation WNL M6 PT-IP Treatment Start: 03/06/25 13:10 Freq: Status: Active Protocol: Document 03/06/25 13:11 NW (Rec: 03/06/25 13:26 NW [id number]) Physical Therapy Treatment Education Education Provided Safety Other Treatments Other Treatment Importance of time spent out of bed and continuing to Performed use staff for transfers. Communicated with RN on current level with orthostatic concerns and to utilize BSC until resolved. M7 PT-IP Assessment and Plan Start: 03/06/25 13:10 Freq: Status: Active Protocol: Document 03/06/25 13:11 NW (Rec: 03/06/25 13:26 NW [id number]) PT Summary Assessment and Plan Potential Rehabilitation Good Potential Status of Condition Evolving at Evaluation Summary Impairments Strength,Balance,Cognition,Bed Mobility,Transfers,Gait, Activity Tolerance Progress Towards Progressing Toward Goals Goals Assessment Summary Bharath is a 79 yr old male admitted with DKA on and has been in the bed since. Pt is generally orientated with some confusion on timeline and length of stay at this time and states at baseline he lives on granddaughters property in [place] with 12 steps to enter and bilateral hand railing. Pt is independent with all cares and does not use an AD, but also states he has fallen several times over the past 6 months with no known cause. Today pt has WFL ROM and strength and requires Lis for bed mobility and transfer with FWW with additional + signs and symptoms for orthostatic hypotension. At this time currently recommending SNF with potential to progress to home with assistance as pt does state he can live with granddaughter if necessary as pt is not currently at baseline. Goals Bed Mobility Goal Independent Transfer Goal Standby Assistance Gait Goal Standby Assistance Gait Distance 50 Other Goals Pt will navigate 14 stairs with bilateral hand railing at SBA. Days to Meet Goals 5 Frequency of Treatment Frequency Of Once a Day Treatment Treatment Plan Physical Therapy Bed Mobility Training,Transfer Training,Gait Training, Treatment Plan Therapeutic Exercise,Balance Retraining,Discharge Planning,Neuromuscular Re-ed Other as orthostatics allows progress to transfers and gait Recommendations and Next Treatment Focus Precautions Other Precautions orthostatic hypotension Weight Bearing Status Weight Bearing Weight Bear as Tolerated Status Recommendations To Nursing Amount of Assist 1 Person Assist Needed Discharge Recommendations PT Discharge SNF Rehab Recommendations Transportation Needs Wheelchair/Cabulance at Discharge - PT assist 1
--- NOTE | 2025-03-06 11:32 | P.PN_ITS ---
Subjective Subjective Date Patient Seen: 03/06/25 Time Patient Seen: 11:32 Interval history: Chief complaint: Encephalopathy and diabetic ketoacidosis atrial fibrillation with rapid ventricular response History of present illness: 03/04: 79-year-old male with no significant past medical history who presented to the emergency room with diabetic ketoacidosis. He is unable to provide any history at the time of my initial evaluation. Records were obtained from the [facility] which show that the [facility] of flank pain, frequency every 30 minutes, and fatigue. He also endorsed dysuria. [facility] some [facility] on Monday and the patient had a telehealth appointment yesterday. He was instructed by telehealth to present to the emergency room due to grossly abnormal labs. [facility] documented history of PTSD and occasional marijuana use for anxiety. The patient is noted to have atrial fibrillation, not previously diagnosed. I did speak with the patient's daughter who reports that she does not think her dad sees a physician on a regular basis. She is not aware of any chronic medical problems or any medications that he takes. She is not aware of any surgeries. Lab studies at presentation notable for WBC 21.3 with repeat this morning of 14.3. VBG with pH 7.16 pCO2 24 PO2 50, sodium 133, CO2 13, creatinine 1.9, glucose 322, AST 186, ALT 160. UA with positive nitrate, 3+ blood, 2+ ketones, 3+ glucose, 1+ protein, trace leukocyte esterase, and 10-30 white blood cells. Urine culture pending. He had a prior E coli resistant to Augmentin, Unasyn, cefazolin, cefuroxime. CT chest difficult to read due to artifact. There are bronchial wall thickening, small pleural plaques, and hepatic steatosis. Plaquing may be from asbestos exposure but will need to gather history from patient. Chest x-ray with bilateral pulmonary nodules or consolidation. Hospital course: 03/05: Patient is still confused but more cogent 4. Still has not close the anion gap infusion had to be resumed case was discussed with pharmacy starting on basal bolus insulin based on insulin requirements we will need large doses of basal insulin 03/06: Patient's insulin requirements are being adjusted by pharmacy with diabetic teaching. Cognitive capacity seems to be returning Review of systems: No rigors chills fevers Whole cough shortness for breath No chest pain palpitations No abdominal pain nausea vomiting Appetite is good Physical examination: Very pleasant elderly male Somewhat confused disoriented but is able to carry conversation HEENT unremarkable Heart rate and rhythm regular Lungs clear Abdomen nontender Extremities no edema No motor deficits Echocardiogram: The left ventricle is normal in size. Left ventricular systolic function is mildly reduced. The ejection fraction is estimated to be 45-50%. Diastolic function could not be accurately assessed due to atrial fibrillation. The right ventricle is mildly dilated. Right ventricular systolic function is mildly reduced. There is no significant valvular heart disease. The aortic root is mildly dilated. Assessment and plan: 79-year-old male with no significant past medical history aside from PTSD, normally followed at the [facility], who presented with diabetic ketoacidosis, new diagnosis of diabetes mellitus, and new atrial fibrillation. Diabetes mellitus, likely insulin dependent Diabetic ketoacidosis * Insulin drip protocol Transitioned to subcu insulin basal bolus due to high insulin requirement * acidosis is resolved * Continue to monitor labs and replete electrolytes as needed * Diabetes education and nutrition education when patient able to participate * Anticipate he will need to discharge on insulin not oral agents Atrial fibrillation, new Unclear how long patient has been in atrial fibrillation. * Initiate metoprolol, low-dose not tolerated with the bradycardia and orthostasis and has been discontinued 03/06 * Initiate Eliquis * Echocardiogram E coli UTI culture sensitive to ceftriaxone * Ceftriaxone transitioned to cefdinir 03/06 ANU Likely secondary to volume depletion from osmotic diuresis due to hyperglycemia, improved. * Encourage p.o. fluids Elevated transaminases AST 186, AST 160. Bilirubin normal. No prior labs for comparison. Patient does not consume alcohol per his daughter. He does have steatosis on imaging so the elevated transaminases may be due to that. Elevation could also be due to ketoacidosis and the underlying infection. * Recheck in the morning DVT prophylax 6 * On Eliquis Code status: * Full code blue Time-Based Coding: * 35 minutes were evaluated in the management this patient including [id number] evaluation review of previous records review of objective findings discussion of case plan with care team including pharmacy Exam Vital Signs (past 8 hours): - 03/06/25 04:00 03/06/25 04:00 03/06/25 04:01 Temperature 97.5 F L Pulse Rate 62 68 78 Respiratory Rate 19 31 H 30 H Blood Pressure 109/75 Pulse Oximetry 96 96 94 Oxygen Delivery Method Oxygen Flow Rate 0 03/06/25 04:01 03/06/25 04:30 03/06/25 05:00 Temperature Pulse Rate 65 62 Respiratory Rate 18 18 Blood Pressure 109/75 Pulse Oximetry 95 95 Oxygen Delivery Method Oxygen Flow Rate 03/06/25 05:01 03/06/25 05:01 03/06/25 05:30 Temperature Pulse Rate 63 60 Respiratory Rate 17 18 Blood Pressure 147/85 H Pulse Oximetry 97 95 Oxygen Delivery Method Oxygen Flow Rate 03/06/25 06:00 03/06/25 06:01 03/06/25 06:01 Temperature Pulse Rate 64 68 Respiratory Rate 20 19 Blood Pressure 163/73 H Pulse Oximetry 96 96 Oxygen Delivery Method Oxygen Flow Rate 03/06/25 06:30 03/06/25 07:00 03/06/25 07:00 Temperature Pulse Rate 64 69 Respiratory Rate 22 23 Blood Pressure Pulse Oximetry 97 98 Oxygen Delivery Method Room Air Oxygen Flow Rate 03/06/25 07:01 03/06/25 07:01 03/06/25 07:30 Temperature Pulse Rate 68 67 Respiratory Rate 23 22 Blood Pressure 170/78 H Pulse Oximetry 97 97 Oxygen Delivery Method Oxygen Flow Rate 03/06/25 08:00 Temperature Pulse Rate 65 Respiratory Rate 27 H Blood Pressure Pulse Oximetry 97 Oxygen Delivery Method Oxygen Flow Rate Oxygen Delivery Method Room Air Oxygen Flow Rate 0 Objective Labs 03/04/25 05:30 03/05/25 04:40 Labs: Laboratory Results - last 24 hr 03/05/25 03/05/25 03/05/25 11:32 13:39 16:45 POC Whole Bld Glucose 124 H 219 H 269 H 03/05/25 03/06/25 20:17 07:53 POC Whole Bld Glucose 272 H 253 H PFSH Social History household members: family Assessment & Plan Time-Based Coding :: [TOTAL MINUTES] spent with patient and on the chart (including review of chart, obtaining history, exam, reviewing outside data, placing orders, documenting exam and treatment plan, and counseling patient) on [DATE].
[2025-03-06] MEDS: INSULIN LISPRO 100 UNIT/ML 3ML VIAL 10 UNIT SUBCUT (12:20)
[2025-03-07] VITALS (66 sets, daily range): BP systolic 93–191; BP diastolic 61–96; PULSE 61–94; RESP 11–38; TEMP 36.1–37.1; O2SAT 95–98
[2025-03-07] MEDS: SUCRALFATE 1 GM/10 ML ORAL SUSP PO ×4 (06:28→23:43)
[2025-03-07] MEDS: PANTOPRAZOLE DR 40 MG TABLET PO (06:28)
[2025-03-07] MEDS: INSULIN GLARGINE 100 UNIT/ML 3ML PEN 60 UNIT SUBCUT (08:32)
[2025-03-07] MEDS: INSULIN LISPRO 100 UNIT/ML 3ML VIAL SUBCUT ×4 (08:33→21:01)
[2025-03-07] MEDS: APIXABAN 5 MG TABLET PO (08:33)
--- NOTE | 2025-03-07 10:47 | DIET.PN1 ---
Dietary Progress Note Assessment: Diet was adjusted to soft low fiber, added carb consistent components and communicated to unit host. Trial of Ensure Max while PO intakes are low, <50%. Ht: 187.96 cm Wt: 100.2 kg BMI: UBW: Last BM: () MNA: Hermilo Score: 18 Diet: 03/06/25 Dinner Soft,Low Fiber (Low residue) Diet Diet Modifications: CARB CONSISTENT 45 GRAMS; bland foods Food Texture: Level 7 - Regular Liquid Consistency: Level 0 - Thin Nutrition Percent Meal Consumed 25% 03/06/25 18:00 Percent Meal Consumed 25% 03/06/25 09:09 Percent Meal Consumed 50% 03/05/25 18:00 Labs: RBC 4.49 X10^6/uL (4.5-5.9) L 03/04/25 05:30 Hgb 13.7 g/dL (13.5-17.5) 03/04/25 05:30 Hct 39.8 % (41-53) L 03/04/25 05:30 Creatinine 1.27 mg/dL (0.66-1.25) H 03/05/25 04:40 Hemoglobin A1c 10.5 % (4.0-6.0) H 03/05/25 04:40 Lactate 1.9 mmol/L (0.7-2.1) 03/03/25 18:15 Electronically Signed by: Tonya Jones 03/07/25 10:47 Clinical Dietitian [address] [address]
[2025-03-07] MEDS: SENNOSIDES 8.6 MG TABLET PO ×2 (12:07→21:01)
[2025-03-07] MEDS: DOCUSATE 100 MG CAPSULE PO ×2 (12:07→21:01)
[2025-03-07] MEDS: INSULIN LISPRO 100 UNIT/ML 3ML VIAL 8 UNIT SUBCUT ×2 (12:32→17:20)
--- NOTE | 2025-03-07 13:57 | CM.DPC ---
SNF options discussed with patient's family at bedside. CM [facility] with the [facility]. CM requested patient's Service Connection percentage status for SNF coverage. [facility] [phone]
--- NOTE | 2025-03-07 14:09 | OT.IP.TRT ---
Current Diagnoses Type 2 diabetes mellitus with ketoacidosis without coma (03/03/25) Occupational Therapy Treatment Note M2 OT-IP Current Condition Start: 03/06/25 13:07 Freq: Status: Active Protocol: Document 03/06/25 13:07 CCC (Rec: 03/06/25 13:24 [facility] Desktop) Occupational Therapy Current Condition Current Condition Evaluation Date 03/06/25 Treatment Diagnosis DKA Diagnosis Onset Date 03/03/25 M3 OT- IP Subjective and Pain Start: 03/06/25 13:07 Freq: Status: Active Protocol: Document 03/07/25 13:59 [facility] (Rec: 03/07/25 14:08 [facility] OT- Subjective Occupational Therapy Visit Type Type Treatment Note Visit Start Time 13:40 Visit Stop Time 13:56 Occupational Therapy Visit Comments Patient Comments Pt agreed to get up to recliner. Pt is concerned that he may need to have a BM due to taking medication for it. Patient/Caregiver TO go home. Goals OT Pain Assessment Pain Present Pain Present Denied Pain M4 OT- IP ADL's Start: 03/06/25 13:07 Freq: Status: Active Protocol: Document 03/07/25 13:59 ALFREDOMEBRANDON (Rec: 03/07/25 14:08 [facility] Desktop) OT [id number] Comments OT Self-Feeding not a meal time Comments OT ADL-Grooming Comments OT Grooming Comments not observed OT ADL-Oral Care General Eval Oral Care Ability Standby Assistance,Minimal Assistance Areas of Assistance Retrieving/Set-Up of Items Comments Oral Care Comments Pt was presented with items for oral hygiene while sitting up in chair. Pt did not apply toothpaste to brush despite vcs needing min A to address the toothpaste for adequate brushing. Pt otherwise thorough in his oral hygiene OT ADL-Dressing General Eval Lower Body Dressing Minimal Assistance Ability Comments OT Dressing Comments Pt needed assist to straighten his socks. OT ADL-Toileting Comments OT Toileting Pt handed OT urinal and needed OT manage emptying Comments OT ADL-Bathing Comments OT Bathing Comments not observed. M5 OT- IP IADL's Start: 03/06/25 13:07 Freq: Status: Active Protocol: Document 03/06/25 13:07 CCC (Rec: 03/06/25 13:24 [facility] Desktop) OT-Instrumental Activities of Daily Living Medication Management Medication Pt has not been able to manage his blood sugars well at Management Comments home. M6 OT- IP Functional Cognition Start: 03/06/25 13:07 Freq: Status: Active Protocol: Document 03/06/25 13:07 [facility] (Rec: 03/06/25 13:24 [facility] Desktop) Cognitive Factors Limiting Selfcare Function Cognitive Ability Level of Alertness Alert Patient Orientation Name,Age,Year,Place,Situation Attention Span Capable of Focused Attention,Capable of Sustained Ability Attention Ability to Follow Able to Follow One Step Commands Commands Cognitive Comments Cognitive Assessment Pt able to follow commands for ADL and mobility needs. Comments Pt will benefit from SLUMS. OT- Vision and Hearing OT- Hearing Assessment OT- Hearing Hearing Impaired Assessment OT- Vision Assessment Visual Acuity WFL Visual Attentiveness WFL Occular Pursuits WFL M7 OT- IP Mobility and Balance Start: 03/06/25 13:07 Freq: Status: Active Protocol: Document 03/07/25 13:59 SAMINA (Rec: 03/07/25 14:08 [facility] Desktop) OT- Bed Mobility Assessment Supine to Sit Supine to Sit Assist Contact Guard Assistance Scooting Scooting to Edge of Standby Assistance Bed OT-Transfer Assessment Sit to and From Stand Sit to and from Contact Guard Assistance Stand Transfers Transfer Ability Contact Guard Assistance Technique Transfer Destination Chair Comments Mobility Comments PT BP in supine 125/70, while EOB 111/74, and in standing 93/61. Pt denies any dizziness. Pt was able to perform bed mobility with CGA. Pt needs vcs for hand placement for safety when performing sit>stand and stand>sit. OT- Balance Assessment Sitting Balance and Reactions Static Sitting Good Balance Ability Dynamic Sitting Fair Balance Ability Standing Balance and Reactions Static Standing Fair Balance Ability Dynamic Standing Fair Balance Ability M8 OT- IP Objective Assessments Start: 03/06/25 13:07 Freq: Status: Active Protocol: Document 03/06/25 13:07 [facility] (Rec: 03/06/25 13:24 [facility] Desktop) OT Gross Range of Motion Upper Extremity Range of Motion Assessment Within Functional Limits OT Strength Upper Extremity Strength Assessment Within Functional Limits M9 OT- IP Assessment and Plan Start: 03/06/25 13:07 Freq: Status: Active Protocol: Document 03/07/25 13:59 SAMINA (Rec: 03/07/25 14:08 [facility]) OT Summary Assessment and Plan Potential Rehabilitation Good Potential Analytic Complexity Moderate at Evaluation Summary OT Impairments Balance,Functional Cognition,Functional Mobility, Grooming,Dressing,Toileting,Bathing,Toilet Transfers, Shower Transfers,Activity Tolerance Progress Towards Slow Progress due to Medical Issues Goals Assessment Summary OT attempted to treat pt earlier in the day, but agreed to return after he ate his meal. Pt needs some encouragement to participate and to get out of bed. Once agreeable, pt puts forth good effort. Pt required decreased assistance with bed mobility and functional tfs today. Pt needs vcs for safety awareness and hand placement during functional mobility. Pt declines attempting to adjust his socks, stating he wears slip on slippers at home. Pt began brushing his teeth without applying toothpaste and needed MIN A to address this. Pt left up in chair with CUSHION FORMER present for PT treatment. Pt family present throughout. Continue to recommend skilled rehab prior to dc home. Cont per POC. Goals Self-Feeding Goal Independent Grooming Goal Independent Dressing Goal Independent Toileting Goal Independent Bathing Goal Independent Toilet Transfer Goal Independent Shower Transfer Goal Independent Days to Meet Goals 15 Frequency of Treatment Other frequency 5x/week Treatment Plan OT Treatment Plan ADL Training,Functional Cognition Training,Patient/ Family Education,Discharge Planning Other Treatment SLUMS Recommendations and Next Treatment Focus Discharge Recommendations OT Discharge SNF Rehab Recommendations Home Equipment Needs shower chair, FWW Transportation Needs Private Vehicle,Wheelchair/Cabulance at Discharge
--- NOTE | 2025-03-07 14:17 | PC.NURSE ---
13[address] DR ADAMS AT BEDSIDE DISCUSSING POC WITH PATIENT/ FAMILY. CASE MANAGEMENT AT BEDSIDE TO ANSWER QUESTIONS WELL. 1400 PT/OT WORKING WITH PATIENT. UP TO CHAIR, WALKING IN ROOM. LINENS CHANGED.
--- NOTE | 2025-03-07 14:50 | PT.IPTN ---
Current Diagnoses Type 2 diabetes mellitus with ketoacidosis without coma (03/03/25) Physical Therapy Treatment Note M2 PT-IP Current Condition Start: 03/06/25 13:10 Freq: Status: Active Protocol: Document 03/06/25 13:11 NW (Rec: 03/06/25 13:26 NW [id number]) Physical Therapy Current Condition Current Condition Evaluation Date 03/06/25 Treatment Diagnosis DKA, Falls, Debility Onset Date 03/03/25 M3 PT-IP Subjective Start: 03/06/25 13:10 Freq: Status: Active Protocol: Document 03/07/25 14:32 AB (Rec: 03/07/25 14:50 AB [id number]) Subjective Physical Therapy Visit Type Type Treatment Note Visit Start Time 13:49 Visit Stop Time 14:24 Number of [employer] Visits 1 M4 PT-IP Mobility and Gait Start: 03/06/25 13:10 Freq: Status: Active Protocol: Document 03/07/25 14:32 AB (Rec: 03/07/25 14:50 AB [id number]) PT-Transfer Assessment Sit to and From Stand Sit to and from Contact Guard Assistance,1 Person Assistance,Use of Stand Upper Extremities Equipment Transfer Assistive Gait Belt,Front Wheeled Walker Device Comments Mobility Comments Seated BP 114/74 standing 93/61. Patient CGA for sit to stand with UE use, no complaints of dizziness. Gait Assessment Gait Distance (Feet) 18 Assistive Devices Assistive Device Gait Belt,Front Wheeled Walker Gait Deviations General Gait Pattern Decreased Stride Length,Decreased Feet Clearance Factors Limiting Gait Function Factors Limiting Decreased Activity Tolerance,Poor Balance Gait Function Comments Gait Comments Patient performed marching in place one min with FWW CGA, reported a little dizzy and SOB, once seated BP 101/62 O2 sat 98%. Second trial of one min marching in place BP 112/68 O2 sat 98%. Patient performed stepping fwd and back 1.5 min with CGA and FWW standing BP post was 105/69. Patient then ambulated 18 feet with FWW CGA , dec step length BP once seated 119/76. Patient reports having no pain through out. Noted dec SLS L LE without UE use one to less than one sec with CGA. PT-Balance Assessment Sitting Balance and Reactions Static Sitting Good Balance Ability Dynamic Sitting Fair Balance Ability Standing Balance and Reactions Static Standing Fair Balance Ability Dynamic Standing Fair Balance Ability Device Used FWW M5 PT-IP Objective Assessments Start: 03/06/25 13:10 Freq: Status: Active Protocol: Document 03/06/25 13:11 NW (Rec: 03/06/25 13:26 NW [id number]) Orientation Orientation/Cognition Level of Alertness Alert Orientation Name,Year,Place,Situation Comments appears to be confused with regards to timeline and time spent in hospital Gross Range of Motion Lower Extremity ROM Assessment Within Functional Limits Strength Lower Extremity Strength Assessment Within Functional Limits Sensation Assessment Sensation Gross Sensation WNL M6 PT-IP Treatment Start: 03/06/25 13:10 Freq: Status: Active Protocol: Document 03/07/25 14:32 AB (Rec: 03/07/25 14:50 AB [id number]) Physical Therapy Treatment Exercises Exercises Seated Knee Flexion/Extension Knee ROM Measurement LAQ with cues to fully extend Other Treatments Other Treatment Pt ed importance of quad strength for ambulation. Performed M7 PT-IP Assessment and Plan Start: 03/06/25 13:10 Freq: Status: Active Protocol: Document 03/07/25 14:32 AB (Rec: 03/07/25 14:50 AB [id number]) PT Summary Assessment and Plan Potential Rehabilitation Good Potential Status of Condition Evolving at Evaluation Summary Impairments Strength,Balance,Cognition,Bed Mobility,Transfers,Gait, Activity Tolerance Progress Towards Progressing Toward Goals Goals Assessment Summary Bharath agreeable to participate in physical therapy. Family present for most of session. Ambulation is limited due to low BP with some symptoms, but ultimately was able to ambulate 18 feet with FWW with CGA this session. Patient left in chair, call light with in reach, nursing made aware and patient made aware nursing must be present to return to bed, or use restroom. Goals Bed Mobility Goal Independent Transfer Goal Standby Assistance Gait Goal Standby Assistance Gait Distance 50 Other Goals Pt will navigate 14 stairs with bilateral hand railing at A. Days to Meet Goals 5 Frequency of Treatment Frequency Of Once a Day Treatment Treatment Plan Physical Therapy Bed Mobility Training,Transfer Training,Gait Training, Treatment Plan Therapeutic Exercise,Balance Retraining,Discharge Planning,Neuromuscular Re-ed Other as orthostatics allows progress to transfers and gait Recommendations and Next Treatment Focus Precautions Other Precautions orthostatic hypotension Weight Bearing Status Weight Bearing Weight Bear as Tolerated Status Recommendations To Nursing Amount of Assist 1 Person Assist Needed Discharge Recommendations PT Discharge SNF Rehab Recommendations Transportation Needs Wheelchair/Cabulance at Discharge - PT assist 1
[2025-03-07] MEDS: MAG HYDROX/ALUMINUM/SIMETH SUS 30 ML, LIDOCAINE VISCOUS 2% 15 ML PO ×3 (15:17→23:43)
--- NOTE | 2025-03-07 16:25 | P.PN_ITS ---
Subjective Subjective Date Patient Seen: 03/07/25 Interval history: Chief complaint: Encephalopathy and diabetic ketoacidosis atrial fibrillation with rapid ventricular response History of present illness: 03/04: 79-year-old male with no significant past medical history who presented to the emergency room with diabetic ketoacidosis. He is unable to provide any history at the time of my initial evaluation. Records were obtained from the [place] which show that [facility] of flank pain, frequency every 30 minutes, and fatigue. He also endorsed dysuria. [facility] on Monday and the patient had a telehealth appointment yesterday. He was instructed by telehealth to present to the emergency room due to grossly abnormal labs. [facility] documented history of PTSD and occasional marijuana use for anxiety. The patient is noted to have atrial fibrillation, not previously diagnosed. I did speak with the patient's daughter who reports that she does not think her dad sees a physician on a regular basis. She is not aware of any chronic medical problems or any medications that he takes. She is not aware of any surgeries. Lab studies at presentation notable for WBC 21.3 with repeat this morning of 14.3. VBG with pH 7.16 pCO2 24 PO2 50, sodium 133, CO2 13, creatinine 1.9, glucose 322, AST 186, ALT 160. UA with positive nitrate, 3+ blood, 2+ ketones, 3+ glucose, 1+ protein, trace leukocyte esterase, and 10-30 white blood cells. Urine culture pending. He had a prior E coli resistant to Augmentin, Unasyn, cefazolin, cefuroxime. CT chest difficult to read due to artifact. There are bronchial wall thickening, small pleural plaques, and hepatic steatosis. Plaquing may be from asbestos exposure but will need to gather history from patient. Chest x-ray with bilateral pulmonary nodules or consolidation. Hospital course: 03/05: Patient is still confused but more cogent 4. Still has not close the anion gap infusion had to be resumed case was discussed with pharmacy starting on basal bolus insulin based on insulin requirements we will need large doses of basal insulin 03/06: Patient's insulin requirements are being adjusted by pharmacy with diabetic teaching. Cognitive capacity seems to be returning 03/07: Getting closer to euglycemia but is still having severe pain in odynophagia with swallowing anything except putting a chocolate milk. Requested a consultation general surgery for an upper endoscopy which we will set up for Monday Review of systems: No rigors chills fevers Whole cough shortness for breath No chest pain palpitations No abdominal pain nausea vomiting Appetite is good Physical examination: Very pleasant elderly male Somewhat confused disoriented but is able to carry conversation HEENT unremarkable Heart rate and rhythm regular Lungs clear Abdomen nontender Extremities no edema No motor deficits Echocardiogram: The left ventricle is normal in size. Left ventricular systolic function is mildly reduced. The ejection fraction is estimated to be 45-50%. Diastolic function could not be accurately assessed due to atrial fibrillation. The right ventricle is mildly dilated. Right ventricular systolic function is mildly reduced. There is no significant valvular heart disease. The aortic root is mildly dilated. Assessment and plan: 79-year-old male with no significant past medical history aside from PTSD, normally followed at the [facility], who presented with diabetic ketoacidosis, new diagnosis of diabetes mellitus, and new atrial fibrillation. Diabetes mellitus, likely insulin dependent Diabetic ketoacidosis * Insulin drip protocol Transitioned to subcu insulin basal bolus due to high insulin requirement * acidosis is resolved Atrial fibrillation, new Unclear how long patient has been in atrial fibrillation. * Initiate metoprolol, low-dose not tolerated with the bradycardia and orthostasis and has been discontinued 03/06 * Initiate Eliquis * Echocardiogram E coli UTI culture sensitive to ceftriaxone * Ceftriaxone transitioned to cefdinir 03/06 Odynophagia suspect esophageal esophagus * Consultation with General surgery for upper endoscopy Friday 03/09 ANU * Resolved Elevated transaminases * Resolved DVT prophylax 6 * On Eliquis Code status: * Full code blue Time-Based Coding: * 35 minutes were evaluated in the management this patient including [id number] evaluation review of previous records review of objective findings discussion of case plan with care team including pharmacy Exam Vital Signs (past 8 hours): - 03/07/25 08:30 03/07/25 08:30 03/07/25 09:00 Temperature Pulse Rate 70 75 Respiratory Rate 31 H 28 H Blood Pressure Oxygen Delivery Method Room Air 03/07/25 09:30 03/07/25 10:00 03/07/25 10:30 Temperature Pulse Rate 89 73 61 Respiratory Rate 27 H 29 H 25 H Blood Pressure Oxygen Delivery Method 03/07/25 11:00 03/07/25 11:30 03/07/25 11:55 Temperature Pulse Rate 72 67 80 Respiratory Rate 23 32 H 20 Blood Pressure Oxygen Delivery Method 03/07/25 11:55 03/07/25 12:00 03/07/25 14:02 Temperature 97.6 F Pulse Rate 74 Respiratory Rate 32 H Blood Pressure 132/83 Oxygen Delivery Method Oxygen Delivery Method Room Air Oxygen Flow Rate 0 Objective Labs 03/04/25 05:30 03/05/25 04:40 Labs: Laboratory Results - last 24 hr 03/06/25 03/06/25 03/06/25 16:47 20:02 21:00 POC Whole Bld Glucose 91 D 172 H 186 H 03/07/25 03/07/25 08:19 11:55 POC Whole Bld Glucose 254 H 287 H PFSH Social History household members: family Assessment & Plan Time-Based Coding :: [TOTAL MINUTES] spent with patient and on the chart (including review of chart, obtaining history, exam, reviewing outside data, placing orders, documenting exam and treatment plan, and counseling patient) on [DATE].
--- NOTE | 2025-03-07 16:39 | PM.CN.IH.1 ---
History of Present Illness Consult details Date Patient Seen: 03/07/25 Time Patient Seen: 16:39 Chief complaint: pcp ref-blod in urine/diabetic problem/weakness Reason for consult: Odynophagia Requesting provider: Girma Borges Narrative: Surgery consut requested for EGD. Patient c/o razor blades when swallowing. More than food getting stuck, certain foods cause significant pain with swallowing, especially tea, carrots and meats. Denies NSAIDs. No prior EGD. Denies h/o PUD, blood in vomit or stool. Denies black stool unless he eats dark chocolate. Smokes 1-2 cigarettes per day and pot. Denies alcohol since he left the [employer] in 1972. 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 Admitted with DKA, afib/RVR. Eliquis being held. Plan EGD 03/09. Meds Home Medications and Allergies Home Medications ?Medication ?Instructions ?Recorded ?Confirmed ?Type Unobtainable 03/05/25 03/05/25 History Allergies Allergy/AdvReac Type Severity Reaction Status Date / Time No Known Drug Allergies Allergy Unverified 12/02/24 15:55 Exam Vital Signs (past 8 hours): - 03/07/25 09:00 03/07/25 09:30 03/07/25 10:00 Temperature Pulse Rate 75 89 73 Respiratory Rate 28 H 27 H 29 H Blood Pressure 03/07/25 10:30 03/07/25 11:00 03/07/25 11:30 Temperature Pulse Rate 61 72 67 Respiratory Rate 25 H 23 32 H Blood Pressure 03/07/25 11:55 03/07/25 11:55 03/07/25 12:00 Temperature Pulse Rate 80 74 Respiratory Rate 20 32 H Blood Pressure 132/83 03/07/25 14:02 Temperature 97.6 F Pulse Rate Respiratory Rate Blood Pressure Oxygen Delivery Method Room Air Oxygen Flow Rate 0 Narrative Exam Narrative: Const General: healthy appearing, comfortable and no acute distress Orientation: alert and oriented x3 HENMT Ears: hearing grossly normal bilaterally Eyes Visual Dougherty: normal visual dougheryt by confrontation Conjunctivae: conjunctivae normal Sclera: sclerae normal EOM: EOM intact bilaterally Resp Effort & Inspection: normal respiratory effort and able to speak in complete sentences Cardio Rate: regular rate GI Palpation: soft (NT) Extrem General: no pedal edema and no calf tenderness Objective Labs 03/04/25 05:30 03/05/25 04:40 Labs: Laboratory Results - last 24 hr 03/06/25 03/06/25 03/06/25 16:47 20:02 21:00 POC Whole Bld Glucose 91 D 172 H 186 H 03/07/25 03/07/25 08:19 11:55 POC Whole Bld Glucose 254 H 287 H PFSH Social History household members: family Assessment & Plan Assessment and plan (1) Odynophagia: Status: Acute Plan Plan EGD 03/09 after 48 hours off eliquis. Plan EGD, possible biopsy to evaluate for esophageal mass, esophagitis, hiatal hernia, Link's, dysplasia, H pylori, PUD. The risks, benefits and options regarding the procedure were explained to the patient in detail. Risk discussion included but not limited to: bleeding, perforation, aspiration, sore throat. The patient was encouraged to ask questions and they were answered to their satisfaction. The patient understands and is agreeable to proceed. Time-Based Coding :: [TOTAL MINUTES] spent with patient and on the chart (including review of chart, obtaining history, exam, reviewing outside data, placing orders, documenting exam and treatment plan, and counseling patient) on [DATE]. PROFEE Charge Codes Inpatient or Observation consultation: [id number]
[2025-03-08] VITALS (56 sets, daily range): BP systolic 109–167; BP diastolic 57–92; PULSE 57–97; RESP 7–30; TEMP 36.4–36.6; O2SAT 95–98
[2025-03-08] MEDS: MAG HYDROX/ALUMINUM/SIMETH SUS 30 ML, LIDOCAINE VISCOUS 2% 15 ML PO ×3 (07:50→17:14)
[2025-03-08] MEDS: PANTOPRAZOLE DR 40 MG TABLET PO (07:50)
[2025-03-08] MEDS: SUCRALFATE 1 GM/10 ML ORAL SUSP PO ×3 (07:52→17:14)
[2025-03-08] MEDS: INSULIN LISPRO 100 UNIT/ML 3ML VIAL SUBCUT ×3 (08:20→17:23)
[2025-03-08] MEDS: INSULIN LISPRO 100 UNIT/ML 3ML VIAL 8 UNIT SUBCUT ×2 (08:20→12:19)
[2025-03-08] MEDS: INSULIN GLARGINE 100 UNIT/ML 3ML PEN 60 UNIT SUBCUT (08:21)
[2025-03-08 09:46] LABS: Add Manual Diff / Slide Review NO; Hematocrit 41.9 % (41-53); Hemoglobin 14.1 g/dL (13.5-17.5); Lymphocytes Absolute Auto 1400 /uL (1100-4500); Mean Corpuscular HGB Conc 33.6 % (30-36); Mean Corpuscular Hemoglobin 30.2 PG (26-34); Mean Corpuscular Volume 89.7 fL (80-100); Platelet Count 175 X10^3/uL (150-400)
[2025-03-08 09:51] LABS: INR 1.2 (0.9-1.3); Prothrombin Time 13.9 SECONDS (9.4-12.5)
[2025-03-08 09:54] LABS: PTT Partial Thromboplastin Tim 29 SECONDS (25.1-36.5)
[2025-03-08 09:56] LABS: Alanine Aminotransferase 77 IU/L (<50); Albumin 2.8 g/dL (3.5-5.0); Albumin Globulin Ratio 0.9 (1.0-2.8); Alkaline Phosphatase 73 U/L (38-126); Blood Urea Nitrogen 29 mg/dL (9-20); Calcium 8.2 mg/dL (8.4-10.2); Carbon Dioxide 21 mmol/L (22-32); Chloride 108 mmol/L (98-107); Estimated Glomerular Filt Rate > 60 mL/min (>60); Globulin 3.2 g/dL (1.7-4.1); Glucose 335 mg/dL (70-99); HEMOLYSIS < 15 (0-50); Potassium 3.7 mmol/L (3.4-5.1); Sodium 135 mmol/L (137-145); Total Protein 6.0 g/dL (6.3-8.2)
[2025-03-08] MEDS: ACETAMINOPHEN 325 MG TABLET 650 MG PO ×2 (11:52→18:00)
--- NOTE | 2025-03-08 13:21 | P.PN_ITS ---
Subjective Subjective Date Patient Seen: 03/08/25 Time Patient Seen: 13:21 Interval history: Chief complaint: Encephalopathy and diabetic ketoacidosis atrial fibrillation with rapid ventricular response History of present illness: 03/04: 79-year-old male with no significant past medical history who presented to the emergency room with diabetic ketoacidosis. He is unable to provide any history at the time of my initial evaluation. Records were obtained from the [place] which show that the [facility] of flank pain, frequency every 30 minutes, and fatigue. He also endorsed dysuria. [facility] ordered some labs on Monday and the patient had a telehealth appointment yesterday. He was instructed by telehealth to present to the emergency room due to grossly abnormal labs. [facility] documented history of PTSD and occasional marijuana use for anxiety. The patient is noted to have atrial fibrillation, not previously diagnosed. I did speak with the patient's daughter who reports that she does not think her dad sees a physician on a regular basis. She is not aware of any chronic medical problems or any medications that he takes. She is not aware of any surgeries. Lab studies at presentation notable for WBC 21.3 with repeat this morning of 14.3. VBG with pH 7.16 pCO2 24 PO2 50, sodium 133, CO2 13, creatinine 1.9, glucose 322, AST 186, ALT 160. UA with positive nitrate, 3+ blood, 2+ ketones, 3+ glucose, 1+ protein, trace leukocyte esterase, and 10-30 white blood cells. Urine culture pending. He had a prior E coli resistant to Augmentin, Unasyn, cefazolin, cefuroxime. CT chest difficult to read due to artifact. There are bronchial wall thickening, small pleural plaques, and hepatic steatosis. Plaquing may be from asbestos exposure but will need to gather history from patient. Chest x-ray with bilateral pulmonary nodules or consolidation. Hospital course: 03/05: Patient is still confused but more cogent 4. Still has not close the anion gap infusion had to be resumed case was discussed with pharmacy starting on basal bolus insulin based on insulin requirements we will need large doses of basal insulin 03/06: Patient's insulin requirements are being adjusted by pharmacy with diabetic teaching. Cognitive capacity seems to be returning 03/07: Getting closer to euglycemia but is still having severe pain in odynophagia with swallowing anything except putting a chocolate milk. Requested a consultation general surgery for an upper endoscopy which we will set up for Monday Review of systems: No rigors chills fevers Whole cough shortness for breath No chest pain palpitations No abdominal pain nausea vomiting Appetite is good Physical examination: Very pleasant elderly male Somewhat confused disoriented but is able to carry conversation HEENT unremarkable Heart rate and rhythm regular Lungs clear Abdomen nontender Extremities no edema No motor deficits Echocardiogram: The left ventricle is normal in size. Left ventricular systolic function is mildly reduced. The ejection fraction is estimated to be 45-50%. Diastolic function could not be accurately assessed due to atrial fibrillation. The right ventricle is mildly dilated. Right ventricular systolic function is mildly reduced. There is no significant valvular heart disease. The aortic root is mildly dilated. Assessment and plan: 79-year-old male with no significant past medical history aside from PTSD, normally followed at the [place], who presented with diabetic ketoacidosis, new diagnosis of diabetes mellitus, and new atrial fibrillation. Diabetes mellitus, likely insulin dependent Diabetic ketoacidosis * Insulin drip protocol Transitioned to subcu insulin basal bolus due to high insulin requirement * acidosis is resolved Atrial fibrillation, new Unclear how long patient has been in atrial fibrillation. * Initiate metoprolol, low-dose not tolerated with the bradycardia and orthostasis and has been discontinued 03/06 * Initiate Eliquis * Echocardiogram E coli UTI culture sensitive to ceftriaxone * Ceftriaxone transitioned to cefdinir 03/06 Odynophagia suspect esophageal esophagus * Consultation with General surgery for upper endoscopy Friday 03/09 ANU * Resolved Elevated transaminases * Resolved DVT prophylax 6 * On Eliquis Code status: * Full code blue Time-Based Coding: * 35 minutes were evaluated in the management this patient including [id number] evaluation review of previous records review of objective findings discussion of case plan with care team including pharmacy Exam Vital Signs (past 8 hours): - 03/08/25 08:00 03/08/25 12:00 Temperature 97.7 F 97.8 F Pulse Rate 63 73 Respiratory Rate 16 20 Blood Pressure 139/77 128/71 Pulse Oximetry 97 95 Oxygen Flow Rate 0 0 Oxygen Delivery Method Room Air Oxygen Flow Rate 0 Objective Labs 03/08/25 09:34 03/08/25 09:34 Labs: Laboratory Results - last 24 hr 03/07/25 03/07/25 03/08/25 16:56 20:27 08:14 WBC RBC Hgb Hct MCV MCH MCHC RDW Plt Count Neut % (Auto) Lymph % (Auto) [place] % (Auto) Eos % (Auto) Baso % (Auto) Neut # (Auto) Lymph # (Auto) [place] # (Auto) Eos # (Auto) Baso # (Auto) PT INR APTT Sodium Potassium Chloride Carbon Dioxide BUN Creatinine Estimated GFR BUN/Creatinine Ratio Glucose POC Whole Bld Glucose 192 H 231 H 188 H Calcium Total Bilirubin AST ALT Alkaline Phosphatase Total Protein Albumin Globulin Albumin/Globulin Ratio 03/08/25 03/08/25 09:34 11:26 WBC 9.5 RBC 4.67 Hgb 14.1 Hct 41.9 MCV 89.7 MCH 30.2 MCHC 33.6 RDW 13.4 Plt Count 175 Neut % (Auto) 77.2 H Lymph % (Auto) 15.2 L [place] % (Auto) 6.8 Eos % (Auto) 0.5 L Baso % (Auto) 0.3 Neut # (Auto) 7400 H Lymph # (Auto) 1400 [place] # (Auto) 600 Eos # (Auto) 100 Baso # (Auto) 0 PT 13.9 H INR 1.2 APTT 29 Sodium 135 L Potassium 3.7 Chloride 108 H Carbon Dioxide 21 L BUN 29 H Creatinine 1.15 Estimated GFR > 60 BUN/Creatinine Ratio 25.2 H Glucose 335 H POC Whole Bld Glucose 355 H D Calcium 8.2 L Total Bilirubin 0.9 AST 61 H ALT 77 H Alkaline Phosphatase 73 Total Protein 6.0 L Albumin 2.8 L Globulin 3.2 Albumin/Globulin Ratio 0.9 L PFSH Social History household members: family Assessment & Plan Time-Based Coding :: [TOTAL MINUTES] spent with patient and on the chart (including review of chart, obtaining history, exam, reviewing outside data, placing orders, documenting exam and treatment plan, and counseling patient) on [DATE].
--- NOTE | 2025-03-08 13:38 | PT.IPTN ---
Current Diagnoses Type 2 diabetes mellitus with ketoacidosis without coma (03/03/25) Dysphagia, unspecified (03/03/25) Physical Therapy Treatment Note M2 PT-IP Current Condition Start: 03/06/25 13:10 Freq: Status: Active Protocol: Document 03/06/25 13:11 NW (Rec: 03/06/25 13:26 NW [id number]) Physical Therapy Current Condition Current Condition Evaluation Date 03/06/25 Treatment Diagnosis DKA, Falls, Debility Onset Date 03/03/25 M3 PT-IP Subjective Start: 03/06/25 13:10 Freq: Status: Active Protocol: Document 03/08/25 13:28 AB (Rec: 03/08/25 13:37 AB [id number]) Subjective Physical Therapy Visit Type Type Treatment Note Visit Start Time 12:04 Visit Stop Time 12:23 Number of DRUM STOCK CLERK Visits 2 Physical Therapy Visit Comments Patient Comments Patient agreeable to participate in PT. Patient rates pain 0/10 start of session. M4 PT-IP Mobility and Gait Start: 03/06/25 13:10 Freq: Status: Active Protocol: Document 03/08/25 13:28 AB (Rec: 03/08/25 13:37 AB [id number]) PT-Bed Mobility Assessment Supine to Sit Supine to Sit Standby Assistance Sit to Supine Sit to Supine Standby Assistance Scooting Scooting to Edge of Standby Assistance Bed PT-Transfer Assessment Sit to and From Stand Sit to and from Standby Assistance,Use of Upper Extremities Stand Equipment Transfer Assistive Gait Belt,Front Wheeled Walker Device Transfers Transfer Destination Chair Transfer Technique Stand Step Pivot Transfer Ability Level of Assist Standby Assistance Comments Mobility Comments BP seated start of session 122/61, Standing 109/57 no complaints of dizziness. Gait Assessment Gait Distance (Feet) 37 Assistive Devices Assistive Device Gait Belt,Front Wheeled Walker Gait Deviations General Gait Pattern Decreased Stride Length,Decreased Feet Clearance Factors Limiting Gait Function Factors Limiting Poor Balance Gait Function Comments Gait Comments No complaints of pain or dizziness during or post ambulation with FWW. Decreased step length and feet clearance persists. PT-Balance Assessment Sitting Balance and Reactions Static Sitting Good Balance Ability Dynamic Sitting Fair Balance Ability Standing Balance and Reactions Static Standing Fair Balance Ability Dynamic Standing Fair Balance Ability Device Used FWW Comments Other Balance Tests/ SLS L LE 1-2 sec R LE 2-3 seconds without UE use Deviations/Treatment : M5 PT-IP Objective Assessments Start: 03/06/25 13:10 Freq: Status: Active Protocol: Document 03/06/25 13:11 NW (Rec: 03/06/25 13:26 NW [id number]) Orientation Orientation/Cognition Level of Alertness Alert Orientation Name,Year,Place,Situation Comments appears to be confused with regards to timeline and time spent in hospital Gross Range of Motion Lower Extremity ROM Assessment Within Functional Limits Strength Lower Extremity Strength Assessment Within Functional Limits Sensation Assessment Sensation Gross Sensation WNL M6 PT-IP Treatment Start: 03/06/25 13:10 Freq: Status: Active Protocol: Document 03/08/25 13:28 AB (Rec: 03/08/25 13:37 AB [id number]) Physical Therapy Treatment Exercises Knee ROM Measurement Also AROM DF and LAQ seated Other Treatments Other Treatment Verbal cues for LAQ, visual cues for DF. Patient ed Performed importance of DF to avoid tripping over feet and LAQ for quad strength for ambulation. M7 PT-IP Assessment and Plan Start: 03/06/25 13:10 Freq: Status: Active Protocol: Document 03/08/25 13:28 AB (Rec: 03/08/25 13:37 AB [id number]) PT Summary Assessment and Plan Potential Rehabilitation Good Potential Status of Condition Evolving at Evaluation Summary Impairments Strength,Balance,Cognition,Bed Mobility,Transfers,Gait, Activity Tolerance Progress Towards Progressing Toward Goals Goals Assessment Summary Bharath agreeable to participate in physical therapy. Goal met for transfers and is progressing toward gait and bed mobility goal. SLS is limited with ROM, strength and balance continuing to impact functional mobility. Goals Bed Mobility Goal Independent Transfer Goal Standby Assistance Gait Goal Standby Assistance Gait Distance 50 Other Goals Pt will navigate 14 stairs with bilateral hand railing at [facility]. Days to Meet Goals 5 Frequency of Treatment Frequency Of Once a Day Treatment Treatment Plan Physical Therapy Bed Mobility Training,Transfer Training,Gait Training, Treatment Plan Therapeutic Exercise,Balance Retraining,Discharge Planning,Neuromuscular Re-ed Other as orthostatics allows progress to transfers and gait Recommendations and Next Treatment Focus Precautions Other Precautions orthostatic hypotension Weight Bearing Status Weight Bearing Weight Bear as Tolerated Status Discharge Recommendations Transportation Needs Wheelchair/Cabulance at Discharge - PT assist 1
--- NOTE | 2025-03-08 14:55 | PC.NURSE ---
[id number] received pt resting in bed; eyes closed; body relaxed; pt has had no signs of pain; pt awake for breakfast about 0815; teaching about insulin and blood sugar results reinforced teaching; gave meds before pt was eating to decrease throat pain. MD rounded; [employer] did care with exercising in room; pt is trying to cooperate; is a little weaker than anticipated, but is slowly progressing. daughter visiting about 1445; pt has had good time OOB, then is resting well back in bed. will continue to monitor POC glucose and continue with MD plan of care as needed for all changes and for ongoing needs/care.
--- NOTE | 2025-03-08 16:42 | PC.NURSE ---
pt resting in bed; has been up to chair; has denied pain; appears to be relaxed; will follow for bowel concerns and potentially loose stools; will continue with plan of care as ordered.
[2025-03-08] MEDS: INSULIN LISPRO 100 UNIT/ML 3ML VIAL 10 UNIT SUBCUT (17:22)
--- NOTE | 2025-03-08 17:32 | PC.NURSE ---
pt had more pain in throat with evening meal; will medicate with tylenol when it is due; other oral meds were helpful, but earlier the added tylenol help a lot more. pt ate his meal, can swallow, but does have throat pain.
--- NOTE | 2025-03-08 22:56 | PC.NURSE ---
Blood glucose 2044 was 63. Repeat 2057 was 77. Gave pt cranberry juice with 2 pckts sugar. Blood glucose 2144 was 178. Will further assess.
[2025-03-09] VITALS (38 sets, daily range): BP systolic 105–156; BP diastolic 63–85; PULSE 56–89; RESP 14–28; TEMP 36.6–37.3; O2SAT 81–99
--- NOTE | 2025-03-09 | PATH_ITS ---
[place] Accession Number: [id number] No. of containers..03 Tissue . 01 Material submitted: . PART A: stomach - STOMACH, ANTRUM PART B: stomach - POLYP OF GASTRIC CARDIA PART C: esophagus - ESOPHAGEAL BIOPSY . 01 Diagnosis: Part A: STOMACH, ANTRUM: Gastric antral mucosa with no diagnostic alterations. No Helicobacter organisms identified on H/E stain. No intestinal metaplasia, dysplasia, or malignancy identified. . Part B: POLYP OF GASTRIC CARDIA: Gastric mucosa with focal mild reactive foveolar hyperplasia. No dysplasia or definite polyp identified. No Helicobacter organisms identified on H/E stain. . Specimen Comments: Additional step sections were examined. . Part C: ESOPHAGEAL BIOPSY: Ulcerated mucosa, with scant intact benign squamous epithelium present. No dysplasia, malignancy, or infectious organisms identified. See comment. . Specimen Comments: The presence of ulceration raises a differential including severe reflux, pill esophagitis, or infectious etiologies, although no infectious organisms are identified. Clinical correlation is recommended for further evaluation. [facility] 03/17/2025 1131 Local . 01 Electronically signed: . Jason Arrington MD, Pathologist NPI- [id number] . 01 Gross description: . . . . Received are three formalin-filled containers each labeled with the patient's name. . A. In a container labeled 1. Antrum. The specimen consists of one fragment of goodson, soft tissue which measures 0.3 x 0.3 x 0.2 cm. The specimen is totally submitted in cassette A1. . B. In a container labeled 2. Polyp of gastric cardia. The specimen consists of one fragment of goodson, soft tissue which measures 0.3 x 0.3 x 0.2 cm. The specimen is totally submitted in cassette B1. . C. In a container labeled 3. Esophageal. The specimen consists of four fragments of goodson, soft tissue which range in size from less than 0.1 cm to 0.3 x 0.3 x 0.2 cm. All fragments are totally submitted in cassette C1. (DC:[id number]) /[facility] 03/17/2025 1131 Local . 01 Microscopic: . Part C: ESOPHAGEAL BIOPSY: An ABPAS stain was performed to evaluate for fungal organisms and is negative. Immunostains* are performed to evaluate for HSV and CMV virus, and are negative. All controls stain appropriately. * This test was developed and the performance characteristics were validated by [employer]. It has not been cleared or approved by the Food and Drug Administration. . 01 Pathologist provided ICD-10: K22.10, K31.7 . 01 CPT . 150755, 085264, 314955, 136932, J97753, S22377 Specimen Comment: A courtesy copy of this report has been sent to [facility] Performed at: [address] [address], [place], [place] [id number] MD Jason Arrington MD Phone: [phone]
[2025-03-09 08:06] LABS: Clostridium difficile toxin AB Not Detected (Not Detect); Enteroaggregative E.coli Not Detected (Not Detect); Enteropathogenic E.coli Not Detected (Not Detect); Enterotoxigenic E.coli It/st Not Detected (Not Detect); Plesiomonsa shigelloides Not Detected (Not Detect); Shiga-like toxin-prod E.coli Not Detected (Not Detect)
[2025-03-09] MEDS: LACTATED RINGERS 1,000 ML 42 ML IV (08:55)
--- NOTE | 2025-03-09 09:00 | PM.PREOP ---
Pre-operative Note Interval Note History & Physical reviewed/Exam performed by Physician: Yes Changes to H&P: No ASA Class (for procedural sedation): III
--- NOTE | 2025-03-09 09:24 | PM.OP.EGD ---
Operative Date/Time/Diagnoses Date of procedure: 03/09/25 Time of procedure: 09:36 Pre-op diagnosis: Odynophagia Post-op diagnosis: same Procedure & Clinicians Study performed: EGD with biopsy Same procedure(s) as scheduled: Yes Indications: 79yo M, odynophagia Surgeon: Tobias Ochoa Anesthesia Type: MAC +/- Procedure Notes SCOAP/Timeout: Performed Procedure in detail: EGD Informed consent was obtained. The procedure, its risks, benefits, and alternatives were discussed. Patient understood and agreed to proceed. The patient was placed in the left lateral decubitus position with head elevated. Sedation given per anesthesia. The video endoscope was inserted into the oropharynx and guided under direct vision into the esophagus, stomach, and duodenum which were carefully examined. The scope was retroflexed to examine the hiatus and gastroesophageal junction. Antral biopsies were obtained for Helicobacter pylori. The patient tolerated the procedure very well. There were no apparent complications. Significant EGD findings: Z-line noted at: 40cm Candidal esophagitis, severe, biopsies taken Severe gastritis, antral biopsies taken for H pylori, consider empiric treatment Duodenum normal Nodule in right pyriform sinus, 3mm, adenomatous appearing, recommend ENT evaluation No hiatal hernia No esophageal stricture, mass No hiatal hernia Findings: gastritis and other findings Estimated Blood Loss: 5 Complications: none Impression: Severe candidal esophagitis Severe gastritis Right pyriform sinus nodule Post-procedure Recommendations: Will call with biopsy results Plan for aftercare: PACU then return to [facility]ura Grace treatment ENT evaluation Follow up: as needed Disposition: PACU
[2025-03-09] MEDS: INSULIN GLARGINE 100 UNIT/ML 3ML PEN 65 UNIT SUBCUT (10:30)
[2025-03-09] MEDS: NYSTATIN SUSP 500,000 UNIT/5 ML UDC 500000 UNIT PO ×4 (10:30→20:45)
[2025-03-09] MEDS: PANTOPRAZOLE 40 MG VIAL IV ×2 (10:30→20:47)
[2025-03-09] MEDS: FLUCONAZOLE 200 MG/100 ML PIGGYBACK 100 MG IV (10:31)
[2025-03-09] MEDS: INSULIN LISPRO 100 UNIT/ML 3ML VIAL 10 UNIT SUBCUT ×2 (12:17→17:19)
[2025-03-09] MEDS: INSULIN LISPRO 100 UNIT/ML 3ML VIAL SUBCUT ×3 (12:18→20:46)
[2025-03-09] MEDS: SUCRALFATE 1 GM/10 ML ORAL SUSP PO ×2 (12:26→17:23)
--- NOTE | 2025-03-09 13:15 | P.PN_ITS ---
Subjective Subjective Date Patient Seen: 03/09/25 Time Patient Seen: 12:05 Interval history: Chief complaint: Encephalopathy and diabetic ketoacidosis atrial fibrillation with rapid ventricular response History of present illness: 03/04: 79-year-old male with no significant past medical history who presented to the emergency room with diabetic ketoacidosis. He is unable to provide any history at the time of my initial evaluation. Records were obtained from the [facility] which show that [facility] of flank pain, frequency every 30 minutes, and fatigue. He also endorsed dysuria. The [facility] on Monday and the patient had a telehealth appointment yesterday. He was instructed by telehealth to present to the emergency room due to grossly abnormal labs. [facility] documented history of PTSD and occasional marijuana use for anxiety. The patient is noted to have atrial fibrillation, not previously diagnosed. I did speak with the patient's daughter who reports that she does not think her dad sees a physician on a regular basis. She is not aware of any chronic medical problems or any medications that he takes. She is not aware of any surgeries. Lab studies at presentation notable for WBC 21.3 with repeat this morning of 14.3. VBG with pH 7.16 pCO2 24 PO2 50, sodium 133, CO2 13, creatinine 1.9, glucose 322, AST 186, ALT 160. UA with positive nitrate, 3+ blood, 2+ ketones, 3+ glucose, 1+ protein, trace leukocyte esterase, and 10-30 white blood cells. Urine culture pending. He had a prior E coli resistant to Augmentin, Unasyn, cefazolin, cefuroxime. CT chest difficult to read due to artifact. There are bronchial wall thickening, small pleural plaques, and hepatic steatosis. Plaquing may be from asbestos exposure but will need to gather history from patient. Chest x-ray with bilateral pulmonary nodules or consolidation. Hospital course: 03/05: Patient is still confused but more cogent 4. Still has not close the anion gap infusion had to be resumed case was discussed with pharmacy starting on basal bolus insulin based on insulin requirements we will need large doses of basal insulin 03/06: Patient's insulin requirements are being adjusted by pharmacy with diabetic teaching. Cognitive capacity seems to be returning 03/07: Getting closer to euglycemia but is still having severe pain in odynophagia with swallowing anything except putting a chocolate milk. Requested a consultation general surgery for an upper endoscopy which we will set up for 03/08: Still having severe dysphagia with anything except liquids and soft diet can tolerate eggs and soft oatmeal 03/09: Endoscopy findings report consistent with severe Grace esophagitis and gastritis suggestive of Helicobacter pylori infection. Patient is started on intravenous Diflucan and nystatin suspension for esophagitis as well as amoxicillin, clarithromycin (alternative to tetracycline due to severe esophagitis and burning) Review of systems: No rigors chills fevers Whole cough shortness for breath No chest pain palpitations No abdominal pain nausea vomiting Appetite is good Physical examination: Very pleasant elderly male Somewhat confused disoriented but is able to carry conversation HEENT unremarkable Heart rate and rhythm regular Lungs clear Abdomen nontender Extremities no edema No motor deficits Echocardiogram: The left ventricle is normal in size. Left ventricular systolic function is mildly reduced. The ejection fraction is estimated to be 45-50%. Diastolic function could not be accurately assessed due to atrial fibrillation. The right ventricle is mildly dilated. Right ventricular systolic function is mildly reduced. There is no significant valvular heart disease. The aortic root is mildly dilated. Assessment and plan: Diabetic ketoacidosis * Insulin drip protocol Transitioned to subcu insulin basal bolus due to high insulin requirement * acidosis is resolved * Permanent Atrial fibrillation, new. * Rate controlled without pharmacologic agents (bradycardia with beta kala) * Eliquis for CVA prophylaxis E coli UTI culture sensitive to ceftriaxone * Ceftriaxone transitioned to cefdinir 03/06 and discontinued Grace esophagitis * Confirmed with General surgery for upper endoscopy Friday 03/09 * IV Diflucan and p.o. nystatin suspension Helicobacter pylori gastroenteritis * Amoxicillin clarithromycin instead of tetracycline due to esophagitis ANU * Resolved Elevated transaminases * Resolved DVT prophylax 6 * On Eliquis Code status: * Full code blue Time-Based Coding: * 35 minutes were evaluated in the management this patient including [id number] evaluation review of previous records review of objective findings discussion of case plan with care team including pharmacy Exam Vital Signs (past 8 hours): - 03/09/25 05:30 03/09/25 06:00 03/09/25 06:30 Temperature Pulse Rate 71 72 68 Respiratory Rate 19 21 16 Blood Pressure Pulse Oximetry Oxygen Delivery Method 03/09/25 07:00 03/09/25 07:30 03/09/25 08:00 Temperature Pulse Rate 62 64 Respiratory Rate 21 16 Blood Pressure 134/72 Pulse Oximetry Oxygen Delivery Method 03/09/25 08:00 03/09/25 08:00 03/09/25 08:55 Temperature 97.9 F Pulse Rate 77 71 Respiratory Rate 28 H 16 Blood Pressure 121/74 Pulse Oximetry 97 97 Oxygen Delivery Method Room Air Room Air 03/09/25 09:42 03/09/25 09:46 03/09/25 09:50 Temperature 98.5 F Pulse Rate 68 60 59 L Respiratory Rate 21 18 17 Blood Pressure 126/71 105/65 126/63 Pulse Oximetry 97 97 97 Oxygen Delivery Method Room Air Room Air Room Air 03/09/25 09:57 Temperature Pulse Rate 62 Respiratory Rate 16 Blood Pressure 118/81 Pulse Oximetry 97 Oxygen Delivery Method Room Air Oxygen Delivery Method Room Air Oxygen Flow Rate 0 Objective Labs 03/08/25 09:34 03/08/25 09:34 Labs: Laboratory Results - last 24 hr 03/08/25 03/08/25 03/08/25 16:54 20:45 20:58 POC Whole Bld Glucose 188 H D 64 L D 77 Stl C. cayetanensis PCR Stool Rotavirus (PCR) Stool Adenovirus (PCR) Stool Astrovirus (PCR) Stool Cryptosporidium PCR Stl E.coli Shiga Tox PCR St Sh/Enteroin Ecoli PCR Stl Enterotoxigenic E PCR Stool EPEC (PCR) Stl E. histolytica PCR Stool Giardia Lamblia PCR Stool Sapovirus (PCR) Stl P. shigelloides PCR St Y.enterocolitica PCR Stool Vibrio (PCR) Stl Vibrio cholerae PCR Stl Enteroaggr Ecoli PCR Stl Norovirus GI/GII PCR Campylobacter (PCR) C. difficile Tox (PCR) Salmonella (PCR) 03/08/25 03/09/25 03/09/25 21:45 00:10 05:55 POC Whole Bld Glucose 178 H D 127 H Stl C. cayetanensis PCR Not detected Stool Rotavirus (PCR) Not detected Stool Adenovirus (PCR) Not detected Stool Astrovirus (PCR) Not detected Stool Cryptosporidium PCR Not detected Stl E.coli Shiga Tox PCR Not detected St Sh/Enteroin Ecoli PCR Not detected Stl Enterotoxigenic E PCR Not detected Stool EPEC (PCR) Not detected Stl E. histolytica PCR Not detected Stool Giardia Lamblia PCR Not detected Stool Sapovirus (PCR) Not detected Stl P. shigelloides PCR Not detected St Y.enterocolitica PCR Not detected Stool Vibrio (PCR) Not detected Stl Vibrio cholerae PCR Not detected Stl Enteroaggr Ecoli PCR Not detected Stl Norovirus GI/GII PCR Not detected Campylobacter (PCR) Not detected C. difficile Tox (PCR) Not detected Salmonella (PCR) Not detected 03/09/25 03/09/25 08:00 12:13 POC Whole Bld Glucose 160 H 399 H D Stl C. cayetanensis PCR Stool Rotavirus (PCR) Stool Adenovirus (PCR) Stool Astrovirus (PCR) Stool Cryptosporidium PCR Stl E.coli Shiga Tox PCR St Sh/Enteroin Ecoli PCR Stl Enterotoxigenic E PCR Stool EPEC (PCR) Stl E. histolytica PCR Stool Giardia Lamblia PCR Stool Sapovirus (PCR) Stl P. shigelloides PCR St Y.enterocolitica PCR Stool Vibrio (PCR) Stl Vibrio cholerae PCR Stl Enteroaggr Ecoli PCR Stl Norovirus GI/GII PCR Campylobacter (PCR) C. difficile Tox (PCR) Salmonella (PCR) PFSH Social History household members: family Assessment & Plan Time-Based Coding :: [TOTAL MINUTES] spent with patient and on the chart (including review of chart, obtaining history, exam, reviewing outside data, placing orders, documenting exam and treatment plan, and counseling patient) on [DATE].
--- NOTE | 2025-03-09 14:05 | CM.DPC ---
DCP Cont: Per MD, pt making progress and to have EGD today with Surgeon but anticipate may be stable for d/c to SNF tomorrow Mon 03/10. Per [facility] admissions (family's preference for SNF) no male beds or anticipated discharges this week. [facility] today to determine bed availability for possible d/c tomorrow. Pt Medicare eligible for SNF whenever SNF secured. PASRR completed but needs MD signature for hospital exempted discharge due to PTSD/anxiety. JACOB Rodriguez
--- NOTE | 2025-03-09 14:31 | PT.IPTN ---
Current Diagnoses Type 2 diabetes mellitus with ketoacidosis without coma (03/03/25) Dysphagia, unspecified (03/03/25) Surgery Performed Operation Date: 03/09/25 09:00 Actual Procedures p Esophagogastroduodenoscopy - Tobias Ochoa MD Physical Therapy Treatment Note M2 PT-IP Current Condition Start: 03/06/25 13:10 Freq: Status: Active Protocol: Document 03/06/25 13:11 NW (Rec: 03/06/25 13:26 NW [id number]) Physical Therapy Current Condition Current Condition Evaluation Date 03/06/25 Treatment Diagnosis DKA, Falls, Debility Onset Date 03/03/25 M3 PT-IP Subjective Start: 03/06/25 13:10 Freq: Status: Active Protocol: Document 03/09/25 14:34 NW (Rec: 03/09/25 14:41 NW [id number]) Subjective Physical Therapy Visit Type Type Treatment Note Visit Start Time 13:51 Visit Stop Time 14:31 Number of TECHNICAL SERVICES COORDINATOR Visits 0 Physical Therapy Visit Comments Patient Comments Pt has been going to the bathroom often. Wants to keep working on getting stronger. Patient Goals To go home M4 PT-IP Mobility and Gait Start: 03/06/25 13:10 Freq: Status: Active Protocol: Document 03/09/25 14:34 NW (Rec: 03/09/25 14:41 NW [id number]) PT-Bed Mobility Assessment Supine to Sit Supine to Sit Independent,Bedrails Sit to Supine Sit to Supine Independent Scooting Scooting to Edge of Independent Bed PT-Transfer Assessment Sit to and From Stand Sit to and from Contact Guard Assistance,Use of Upper Extremities Stand Equipment Transfer Assistive Gait Belt,Front Wheeled Walker Device Transfers Transfer Destination Bed,Chair,Toilet Transfer Technique Stand Step Pivot Transfer Ability Level of Assist Contact Guard Assistance Comments Mobility Comments Utilizes momentum to achieve stance with pushing up with bilateral UE from surface. Upon stance uses posterior surface to gain balance, and is able to right and stand unsupported to assist with toileting tasks. Pt verbalizes focus on eccentric control. Gait Assessment Gait Gait Assistance Contact Guard Assist Required: Distance (Feet) 60 Assistive Devices Assistive Device Gait Belt,Front Wheeled Walker Gait Deviations General Gait Pattern Decreased Stride Length,Wide Based Gait Factors Limiting Gait Function Factors Limiting Decreased Activity Tolerance,Decreased Strength,Poor Gait Function Balance Comments Gait Comments Performed over three unequal bouts with reduced UE support on FWW. Slow raul and velocity with cues to maintain FWW on ground. Signs of exertion following. PT-Balance Assessment Sitting Balance and Reactions Static Sitting Good Balance Ability Dynamic Sitting Fair Balance Ability Standing Balance and Reactions Static Standing Fair Balance Ability Dynamic Standing Fair Balance Ability Device Used FWW Functional Assessments Functional Tests 5 Times Sit to Stand 24 sec modified M5 PT-IP Objective Assessments Start: 03/06/25 13:10 Freq: Status: Active Protocol: Document 03/06/25 13:11 NW (Rec: 03/06/25 13:26 NW [id number]) Orientation Orientation/Cognition Level of Alertness Alert Orientation Name,Year,Place,Situation Comments appears to be confused with regards to timeline and time spent in hospital Gross Range of Motion Lower Extremity ROM Assessment Within Functional Limits Strength Lower Extremity Strength Assessment Within Functional Limits Sensation Assessment Sensation Gross Sensation WNL M6 PT-IP Treatment Start: 03/06/25 13:10 Freq: Status: Active Protocol: Document 03/09/25 14:34 NW (Rec: 03/09/25 14:41 NW [id number]) Physical Therapy Treatment Other Treatments Other Treatment STS from bed side chair 2 x 5 Performed STS throughout session from EOB, bed side chair, and toilet x 14 throughout. Education on pacing for activity tolerance. M7 PT-IP Assessment and Plan Start: 03/06/25 13:10 Freq: Status: Active Protocol: Document 03/09/25 14:34 NW (Rec: 03/09/25 14:41 NW [id number]) PT Summary Assessment and Plan Potential Rehabilitation Good Potential Status of Condition Evolving at Evaluation Summary Impairments Strength,Balance,Cognition,Bed Mobility,Transfers,Gait, Activity Tolerance Progress Towards Progressing Toward Goals Goals Assessment Summary Pt continues to progress in ambulation distance and improving activity tolerance in being able to complete several STS to emphasize quad strength. Vitals remain stable with no s/s of orthostatic hypotension. Following session should trial small steps. Goals Bed Mobility Goal Independent Transfer Goal Standby Assistance Gait Goal Standby Assistance Gait Distance 50 Other Goals Pt will navigate 14 stairs with bilateral hand railing at A. Days to Meet Goals 5 Frequency of Treatment Frequency Of Once a Day Treatment Treatment Plan Physical Therapy Bed Mobility Training,Transfer Training,Gait Training, Treatment Plan Therapeutic Exercise,Balance Retraining,Discharge Planning,Neuromuscular Re-ed Other progress gait distance and small step navigation Recommendations and Next Treatment Focus Precautions Other Precautions orthostatic hypotension Weight Bearing Status Weight Bearing Weight Bear as Tolerated Status Recommendations To Nursing Amount of Assist 1 Person Assist Needed Discharge Recommendations PT Discharge SNF Rehab Recommendations Transportation Needs Private Vehicle,Wheelchair/Cabulance at Discharge - PT assist 1
[2025-03-09] MEDS: CLARITHROMYCIN 500 MG TABLET PO (20:45)
[2025-03-09] MEDS: AMOXICILLIN 250 MG CAPSULE 1000 MG PO (20:45)
[2025-03-10] VITALS (11 sets, daily range): BP systolic 136–194; BP diastolic 66–91; PULSE 61–85; RESP 16–18; TEMP 36.5–37.1; O2SAT 94–99
[2025-03-10] MEDS: NYSTATIN SUSP 500,000 UNIT/5 ML UDC 500000 UNIT PO ×4 (08:28→20:14)
[2025-03-10] MEDS: INSULIN GLARGINE 100 UNIT/ML 3ML PEN 65 UNIT SUBCUT (08:28)
[2025-03-10] MEDS: PANTOPRAZOLE 40 MG VIAL IV ×2 (08:28→20:14)
[2025-03-10] MEDS: AMOXICILLIN 250 MG CAPSULE 1000 MG PO ×2 (08:29→20:53)
[2025-03-10] MEDS: CLARITHROMYCIN 500 MG TABLET PO ×2 (08:29→20:14)
[2025-03-10] MEDS: INSULIN LISPRO 100 UNIT/ML 3ML VIAL 10 UNIT SUBCUT ×3 (08:30→17:47)
[2025-03-10] MEDS: FLUCONAZOLE 200 MG/100 ML PIGGYBACK 100 MG IV (12:58)
[2025-03-10] MEDS: INSULIN LISPRO 100 UNIT/ML 3ML VIAL SUBCUT ×2 (13:00→17:48)
--- NOTE | 2025-03-10 13:21 | P.PN_ITS ---
Subjective Subjective Date Patient Seen: 03/10/25 Time Patient Seen: 13:22 Interval history: Chief complaint: Encephalopathy and diabetic ketoacidosis atrial fibrillation with rapid ventricular response History of present illness: 03/04: 79-year-old male with no significant past medical history who presented to the emergency room with diabetic ketoacidosis. He is unable to provide any history at the time of my initial evaluation. Records were obtained from the [place] which show that the [facility] of flank pain, frequency every 30 minutes, and fatigue. He also endorsed dysuria. The [facility] some [facility] on Monday and the patient had a telehealth appointment yesterday. He was instructed by telehealth to present to the emergency room due to grossly abnormal labs. [facility] documented history of PTSD and occasional marijuana use for anxiety. The patient is noted to have atrial fibrillation, not previously diagnosed. I did speak with the patient's daughter who reports that she does not think her dad sees a physician on a regular basis. She is not aware of any chronic medical problems or any medications that he takes. She is not aware of any surgeries. Lab studies at presentation notable for WBC 21.3 with repeat this morning of 14.3. VBG with pH 7.16 pCO2 24 PO2 50, sodium 133, CO2 13, creatinine 1.9, glucose 322, AST 186, ALT 160. UA with positive nitrate, 3+ blood, 2+ ketones, 3+ glucose, 1+ protein, trace leukocyte esterase, and 10-30 white blood cells. Urine culture pending. He had a prior E coli resistant to Augmentin, Unasyn, cefazolin, cefuroxime. CT chest difficult to read due to artifact. There are bronchial wall thickening, small pleural plaques, and hepatic steatosis. Plaquing may be from asbestos exposure but will need to gather history from patient. Chest x-ray with bilateral pulmonary nodules or consolidation. Hospital course: 03/05: Patient is still confused but more cogent 4. Still has not close the anion gap infusion had to be resumed case was discussed with pharmacy starting on basal bolus insulin based on insulin requirements we will need large doses of basal insulin 03/06: Patient's insulin requirements are being adjusted by pharmacy with diabetic teaching. Cognitive capacity seems to be returning 03/07: Getting closer to euglycemia but is still having severe pain in odynophagia with swallowing anything except putting a chocolate milk. Requested a consultation general surgery for an upper endoscopy which we will set up for 03/08: Still having severe dysphagia with anything except liquids and soft diet can tolerate eggs and soft oatmeal 03/09: Endoscopy findings report consistent with severe Grace esophagitis and gastritis suggestive of Helicobacter pylori infection. Patient is started on intravenous Diflucan and nystatin suspension for esophagitis as well as amoxicillin, clarithromycin (alternative to tetracycline due to severe esophagitis and burning) 03/10: Patient is doing better and is ready for jail placement Review of systems: No rigors chills fevers Whole cough shortness for breath No chest pain palpitations No abdominal pain nausea vomiting Appetite is good Physical examination: Very pleasant elderly male Somewhat confused disoriented but is able to carry conversation HEENT unremarkable Heart rate and rhythm regular Lungs clear Abdomen nontender Extremities no edema No motor deficits Echocardiogram: The left ventricle is normal in size. Left ventricular systolic function is mildly reduced. The ejection fraction is estimated to be 45-50%. Diastolic function could not be accurately assessed due to atrial fibrillation. The right ventricle is mildly dilated. Right ventricular systolic function is mildly reduced. There is no significant valvular heart disease. The aortic root is mildly dilated. Assessment and plan: Diabetic ketoacidosis * Insulin drip protocol Transitioned to subcu insulin basal bolus due to high insulin requirement * acidosis is resolved * Permanent Atrial fibrillation, new. * Rate controlled without pharmacologic agents (bradycardia with beta kala) * Eliquis for CVA prophylaxis E coli UTI culture sensitive to ceftriaxone * Ceftriaxone transitioned to cefdinir 03/06 and discontinued Grace esophagitis * Confirmed with General surgery for upper endoscopy Friday 03/09 * IV Diflucan and p.o. nystatin suspension Helicobacter pylori gastroenteritis * Amoxicillin clarithromycin instead of tetracycline due to esophagitis ANU * Resolved Elevated transaminases * Resolved DVT prophylax 6 * On Eliquis Code status: * Full code blue Time-Based Coding: * 35 minutes were evaluated in the management this patient including [id number] evaluation review of previous records review of objective findings discussion of case plan with care team including pharmacy Exam Vital Signs (past 8 hours): - 03/10/25 05:45 03/10/25 09:00 Temperature 97.7 F Pulse Rate 61 71 Respiratory Rate 18 16 Blood Pressure 163/77 H 143/66 H Pulse Oximetry 98 96 Oxygen Delivery Method Room Air Oxygen Flow Rate 0 Objective Labs 03/08/25 09:34 03/08/25 09:34 Labs: Laboratory Results - last 24 hr 03/09/25 03/09/25 03/10/25 17:02 20:41 07:54 POC Whole Bld Glucose 383 H 251 H D 110 H D 03/10/25 12:32 POC Whole Bld Glucose 210 H D PFSH Social History household members: family Assessment & Plan Time-Based Coding :: [TOTAL MINUTES] spent with patient and on the chart (including review of chart, obtaining history, exam, reviewing outside data, placing orders, documenting exam and treatment plan, and counseling patient) on [DATE].
--- NOTE | 2025-03-10 13:33 | CM.DPNOTE ---
DCP note DEPARTMENT CHAIRPERSON reviewed EMR per provider medically cleared to dc . per nazanin at [facility], can accept likely tomorrow. time pending. DEPARTMENT CHAIRPERSON sent updated clinicals. provider signed PASRR. DEPARTMENT CHAIRPERSON met with pt in room. reviewed plan. in agreement. answered questions to best of ability. P: dc potentially tomorrow to [facility] transport with facility vehicle time pending. will continue to follow closely for DCP Coordination JACOB Camarena
--- NOTE | 2025-03-10 14:21 | PT.IPTN ---
Current Diagnoses Type 2 diabetes mellitus with ketoacidosis without coma (03/03/25) Dysphagia, unspecified (03/03/25) Surgery Performed Operation Date: 03/09/25 09:00 Actual Procedures p Esophagogastroduodenoscopy - Tobias Ochoa MD Physical Therapy Treatment Note M2 PT-IP Current Condition Start: 03/06/25 13:10 Freq: Status: Active Protocol: Document 03/06/25 13:11 NW (Rec: 03/06/25 13:26 NW [id number]) Physical Therapy Current Condition Current Condition Evaluation Date 03/06/25 Treatment Diagnosis DKA, Falls, Debility Onset Date 03/03/25 M3 PT-IP Subjective Start: 03/06/25 13:10 Freq: Status: Active Protocol: Document 03/10/25 16:24 NW (Rec: 03/10/25 16:31 NW [id number]) Subjective Physical Therapy Visit Type Type Treatment Note Visit Start Time 13:38 Visit Stop Time 14:21 Number of DISTRICT SUPERVISOR Visits 0 Physical Therapy Visit Comments Patient Comments To continue getting stronger Patient Goals Go to rehab tomorrow. M4 PT-IP Mobility and Gait Start: 03/06/25 13:10 Freq: Status: Active Protocol: Document 03/10/25 16:24 NW (Rec: 03/10/25 16:31 NW [id number]) PT-Bed Mobility Assessment Supine to Sit Supine to Sit Standby Assistance,Head of Bed Elevated Scooting Scooting to Edge of Standby Assistance Bed PT-Transfer Assessment Sit to and From Stand Sit to and from Contact Guard Assistance,1 Person Assistance,Use of Stand Upper Extremities Equipment Transfer Assistive Gait Belt,Front Wheeled Walker Device Transfers Transfer Destination Chair,Toilet Transfer Technique Stand Step Pivot Transfer Ability Level of Assist Contact Guard Assistance Comments Mobility Comments Improved power production and balance upon stance. Able to stand without UE support and assist with toileting tasks/dressing with WBOS. Vitals remains stable upon assessment. Gait Assessment Gait Gait Assistance Contact Guard Assist Required: Distance (Feet) 80 Assistive Devices Assistive Device Gait Belt,Front Wheeled Walker Gait Deviations General Gait Pattern Wide Based Gait Factors Limiting Gait Function Factors Limiting Decreased Activity Tolerance Gait Function Comments Gait Comments Performed over two irregular bouts with minimal UE WBing through AD. Improved velocity and raul. Fatigues quickly and requires cues to maintain safety awareness with energy conservation to return to room. Stair Climbing Assessment Comments Stair Climbing Performed alternating step ups with R hand rail support Comments (end of bed) with 4 step x 8. Signs of exertion noted with normal vitals. Heavy use of UE to perform, poor eccentric control. PT-Balance Assessment Sitting Balance and Reactions Static Sitting Normal Balance Ability Dynamic Sitting Normal Balance Ability Standing Balance and Reactions Static Standing Good Balance Ability Dynamic Standing Fair Balance Ability Device Used FWW M5 PT-IP Objective Assessments Start: 03/06/25 13:10 Freq: Status: Active Protocol: Document 03/06/25 13:11 NW (Rec: 03/06/25 13:26 NW [id number]) Orientation Orientation/Cognition Level of Alertness Alert Orientation Name,Year,Place,Situation Comments appears to be confused with regards to timeline and time spent in hospital Gross Range of Motion Lower Extremity ROM Assessment Within Functional Limits Strength Lower Extremity Strength Assessment Within Functional Limits Sensation Assessment Sensation Gross Sensation WNL M6 PT-IP Treatment Start: 03/06/25 13:10 Freq: Status: Active Protocol: Document 03/10/25 16:24 NW (Rec: 03/10/25 16:31 NW [id number]) Physical Therapy Treatment Education Education Provided Safety Other Treatments Other Treatment Energy conservation and activity tolerance education. Performed M7 PT-IP Assessment and Plan Start: 03/06/25 13:10 Freq: Status: Active Protocol: Document 03/10/25 16:24 NW (Rec: 03/10/25 16:31 NW [id number]) PT Summary Assessment and Plan Potential Rehabilitation Good Potential Status of Condition Stable at Evaluation Summary Impairments Strength,Transfers,Gait,Activity Tolerance Progress Towards Progressing Toward Goals Goals Assessment Summary Pt continues to progress towards goals in SBA bed mobility, CGA for transfers and gait 80 ft with FWW and step up on 4 step navigation with unilateral handrail . Poor activity tolerance and requires 3-4 minute rest breaks between each mobilization. Education given on small exercise bouts to allow for adequate rest time between trials. Continue to recommend SNF as pt is not currently at PLOF and would be unsafe to return home. Goals Bed Mobility Goal Independent Transfer Goal Standby Assistance Gait Goal Standby Assistance Gait Distance 150 Other Goals Pt will navigate 14 stairs with bilateral hand railing at A. Days to Meet Goals 5 Frequency of Treatment Frequency Of Once a Day Treatment Treatment Plan Physical Therapy Bed Mobility Training,Transfer Training,Gait Training, Treatment Plan Therapeutic Exercise,Balance Retraining,Discharge Planning,Neuromuscular Re-ed Other progress gait distance and small step navigation Recommendations and Next Treatment Focus Precautions Other Precautions orthostatic hypotension Weight Bearing Status Weight Bearing Weight Bear as Tolerated Status Recommendations To Nursing Amount of Assist 1 Person Assist Needed Discharge Recommendations PT Discharge SNF Rehab Recommendations Transportation Needs Private Vehicle,Wheelchair/Cabulance at Discharge - PT assist 1
--- NOTE | 2025-03-10 15:52 | OT.IP.TRT ---
Current Diagnoses Type 2 diabetes mellitus with ketoacidosis without coma (03/03/25) Dysphagia, unspecified (03/03/25) Surgery Performed Operation Date: 03/09/25 09:00 Actual Procedures p Esophagogastroduodenoscopy - Tobias Ochoa MD Occupational Therapy Treatment Note M2 OT-IP Current Condition Start: 03/06/25 13:07 Freq: Status: Active Protocol: Document 03/06/25 13:07 CCC (Rec: 03/06/25 13:24 [facility] Desktop) Occupational Therapy Current Condition Current Condition Evaluation Date 03/06/25 Treatment Diagnosis DKA Diagnosis Onset Date 03/03/25 M3 OT- IP Subjective and Pain Start: 03/06/25 13:07 Freq: Status: Active Protocol: Document 03/10/25 15:44 [facility] (Rec: 03/10/25 15:51 [facility] Desktop) OT- Subjective Occupational Therapy Visit Type Type Treatment Note Visit Start Time 15:23 Visit Stop Time 15:40 Occupational Therapy Visit Comments Patient Comments Pt agreed to participate in ADLs with OT. Patient/Caregiver TO go home. Goals OT Pain Assessment Pain Present Pain Present Denied Pain M4 OT- IP ADL's Start: 03/06/25 13:07 Freq: Status: Active Protocol: Document 03/10/25 15:44 [facility] (Rec: 03/10/25 15:51 [facility] Desktop) OT [id number] Comments OT Self-Feeding not a meal time Comments OT ADL-Grooming Comments OT Grooming Comments not observed OT ADL-Oral Care General Eval Oral Care Ability Standby Assistance Comments Oral Care Comments Pt performs oral hygiene sink side gathering needed supplies. Pt continues to insist on brushing his teeth without toothpaste but performs a thorough job OT ADL-Dressing General Eval Lower Body Dressing Standby Assistance Ability Comments OT Dressing Comments Pt dons sweat pants with S while seated on window seat. OT ADL-Toileting Comments OT Toileting not observed Comments OT ADL-Bathing Comments OT Bathing Comments pt declined performing M5 OT- IP IADL's Start: 03/06/25 13:07 Freq: Status: Active Protocol: Document 03/06/25 13:07 CCC (Rec: 03/06/25 13:24 [facility] Desktop) OT-Instrumental Activities of Daily Living Medication Management Medication Pt has not been able to manage his blood sugars well at Management Comments home. M6 OT- IP Functional Cognition Start: 03/06/25 13:07 Freq: Status: Active Protocol: Document 03/06/25 13:07 [facility] (Rec: 03/06/25 13:24 [facility] Desktop) Cognitive Factors Limiting Selfcare Function Cognitive Ability Level of Alertness Alert Patient Orientation Name,Age,Year,Place,Situation Attention Span Capable of Focused Attention,Capable of Sustained Ability Attention Ability to Follow Able to Follow One Step Commands Commands Cognitive Comments Cognitive Assessment Pt able to follow commands for ADL and mobility needs. Comments Pt will benefit from SLUMS. OT- Vision and Hearing OT- Hearing Assessment OT- Hearing Hearing Impaired Assessment OT- Vision Assessment Visual Acuity WFL Visual Attentiveness WFL Occular Pursuits WFL M7 OT- IP Mobility and Balance Start: 03/06/25 13:07 Freq: Status: Active Protocol: Document 03/10/25 15:44 [facility] (Rec: 03/10/25 15:51 [facility] Desktop) OT- Bed Mobility Assessment Supine to Sit Supine to Sit Assist Standby Assistance Sit to Supine Sit to Supine Assist Standby Assistance Scooting Scooting to Edge of Standby Assistance Bed OT-Transfer Assessment Sit to and From Stand Sit to and from Standby Assistance Stand Transfers Transfer Ability Standby Assistance Technique Transfer Destination Bed Comments Mobility Comments Pt performs bed mobility with S, sit to stand with SBA and amb to the window bench seat where his clothes were located. Pt sits with SBA and performs LB dressing. Pt stands with SBA and amb to the sink where he performs oral hygiene standing with S. Pt returns to bed with SBA and performs bed mobility with S. OT- Balance Assessment Sitting Balance and Reactions Static Sitting Normal Balance Ability Dynamic Sitting Good Balance Ability Standing Balance and Reactions Static Standing Good Balance Ability Dynamic Standing Fair Balance Ability M8 OT- IP Objective Assessments Start: 03/06/25 13:07 Freq: Status: Active Protocol: Document 03/06/25 13:07 [facility] (Rec: 03/06/25 13:24 [facility] Desktop) OT Gross Range of Motion Upper Extremity Range of Motion Assessment Within Functional Limits OT Strength Upper Extremity Strength Assessment Within Functional Limits M9 OT- IP Assessment and Plan Start: 03/06/25 13:07 Freq: Status: Active Protocol: Document 03/10/25 15:44 [facility] (Rec: 03/10/25 15:51 [facility] Summary Assessment and Plan Potential Rehabilitation Good Potential Analytic Complexity Moderate at Evaluation Summary OT Impairments Balance,Functional Cognition,Functional Mobility, Grooming,Dressing,Toileting,Bathing,Toilet Transfers, Shower Transfers,Activity Tolerance Progress Towards Progressing Toward Goals Goals Assessment Summary Pt was agreeable to participating in skilled OT services. Pt declined taking a shower or toileting, but agreed to demonstrate LB dressing and sink side ADLs. Pt performed LB dressing with sweat pants with S and sink side oral hygiene with S. Pt demonstrates improved bed mobility and decreased assistance during functional mobility. Pt was left reclined in bed with all needs met and in reach. Pt would continue to benefit from SNF for a short time to address return to PLOF. Cont per POC. Goals Self-Feeding Goal Independent Grooming Goal Independent Dressing Goal Independent Toileting Goal Independent Bathing Goal Independent Toilet Transfer Goal Independent Shower Transfer Goal Independent Days to Meet Goals 10 Frequency of Treatment Other frequency 5x/week Treatment Plan OT Treatment Plan ADL Training,Functional Cognition Training,Patient/ Family Education,Discharge Planning Discharge Recommendations OT Discharge SNF Rehab Recommendations Home Equipment Needs shower chair, FWW Transportation Needs Private Vehicle at Discharge
[2025-03-10] MEDS: SUCRALFATE 1 GM/10 ML ORAL SUSP PO (17:47)
[2025-03-10] MEDS: DOCUSATE 100 MG CAPSULE PO (20:14)
[2025-03-10] MEDS: SENNOSIDES 8.6 MG TABLET PO (20:14)
[2025-03-11 03:12] VITALS: O2SAT 94
[2025-03-11 03:13] VITALS: BP 159/68; PULSE 72; RESP 18; TEMP 36.5; O2SAT 99
--- NOTE | 2025-03-11 07:56 | PM.DS.1 ---
History of Present Illness History of Present Illness Date Patient Seen: 03/11/25 Time Patient Seen: 07:57 Chief complaint: pcp ref-blod in urine/diabetic problem/weakness Narrative: Chief complaint: Encephalopathy and diabetic ketoacidosis atrial fibrillation with rapid ventricular response History of present illness: 03/04: 79-year-old male with no significant past medical history who presented to the emergency room with diabetic ketoacidosis. He is unable to provide any history at the time of my initial evaluation. Records were obtained from the [facility] which show that the [facility] of flank pain, frequency every 30 minutes, and fatigue. He also endorsed dysuria. The [facility] on Monday and the patient had a telehealth appointment yesterday. He was instructed by telehealth to present to the emergency room due to grossly abnormal labs. [facility] documented history of PTSD and occasional marijuana use for anxiety. The patient is noted to have atrial fibrillation, not previously diagnosed. I did speak with the patient's daughter who reports that she does not think her dad sees a physician on a regular basis. She is not aware of any chronic medical problems or any medications that he takes. She is not aware of any surgeries. Lab studies at presentation notable for WBC 21.3 with repeat this morning of 14.3. VBG with pH 7.16 pCO2 24 PO2 50, sodium 133, CO2 13, creatinine 1.9, glucose 322, AST 186, ALT 160. UA with positive nitrate, 3+ blood, 2+ ketones, 3+ glucose, 1+ protein, trace leukocyte esterase, and 10-30 white blood cells. Urine culture pending. He had a prior E coli resistant to Augmentin, Unasyn, cefazolin, cefuroxime. CT chest difficult to read due to artifact. There are bronchial wall thickening, small pleural plaques, and hepatic steatosis. Plaquing may be from asbestos exposure but will need to gather history from patient. Chest x-ray with bilateral pulmonary nodules or consolidation. Hospital course: 03/05: Patient is still confused but more cogent 4. Still has not close the anion gap infusion had to be resumed case was discussed with pharmacy starting on basal bolus insulin based on insulin requirements we will need large doses of basal insulin 03/06: Patient's insulin requirements are being adjusted by pharmacy with diabetic teaching. Cognitive capacity seems to be returning 03/07: Getting closer to euglycemia but is still having severe pain in odynophagia with swallowing anything except putting a chocolate milk. Requested a consultation general surgery for an upper endoscopy which we will set up for 03/08: Still having severe dysphagia with anything except liquids and soft diet can tolerate eggs and soft oatmeal 03/09: Endoscopy findings report consistent with severe Grace esophagitis and gastritis suggestive of Helicobacter pylori infection. Patient is started on intravenous Diflucan and nystatin suspension for esophagitis as well as amoxicillin, clarithromycin (alternative to tetracycline due to severe esophagitis and burning) 03/10: Patient is doing better and is ready for senior living placement 03/11: Anticipate patient to be discharged today to senior living facility we will need to establish with PCP Review of systems: No rigors chills fevers Whole cough shortness for breath No chest pain palpitations No abdominal pain nausea vomiting Appetite is good Physical examination: Very pleasant elderly male Somewhat confused disoriented but is able to carry conversation HEENT unremarkable Heart rate and rhythm regular Lungs clear Abdomen nontender Extremities no edema No motor deficits Echocardiogram: The left ventricle is normal in size. Left ventricular systolic function is mildly reduced. The ejection fraction is estimated to be 45-50%. Diastolic function could not be accurately assessed due to atrial fibrillation. The right ventricle is mildly dilated. Right ventricular systolic function is mildly reduced. There is no significant valvular heart disease. The aortic root is mildly dilated. Assessment and plan: Diabetic ketoacidosis Insulin drip protocol Transitioned to subcu insulin basal bolus due to high insulin requirement acidosis is resolved Permanent Atrial fibrillation, new. Rate controlled without pharmacologic agents (bradycardia with beta kala) Eliquis for CVA prophylaxis E coli UTI culture sensitive to ceftriaxone Ceftriaxone transitioned to cefdinir 03/06 and discontinued Grace esophagitis Confirmed with General surgery for upper endoscopy Friday 03/09 IV Diflucan and p.o. nystatin suspension Helicobacter pylori gastroenteritis Amoxicillin clarithromycin instead of metronidazole due to esophagitis ANU Resolved Elevated transaminases Resolved DVT prophylax 6 On Eliquis Code status: Full code blue Time-Based Codin minutes were evaluated in the management this patient including [id number] evaluation review of previous records review of objective findings discussion of case plan with care team including pharmacy Discharge Providers Provider Date of admission: 03/03/25 19:08 Discharge Date: 03/11/25 Consults: 03/04/25 00:16 Consult to Pharmacy Routine Comment: protocol 03/06/25 09:02 Consult to Occupational Therapy Evaluate & Treat Comment: Physician Instructions: Evaluate and treat Consult to Physical Therapy Evaluate & Treat Comment: Physician Instructions: Evaluate and Treat Discharge provider: Girma Borges MD Exam Vital Signs (past 8 hours): - 03/11/25 03:12 03/11/25 03:13 03/11/25 03:13 Temperature 97.7 F Pulse Rate 72 Respiratory Rate 18 Blood Pressure 159/68 H Pulse Oximetry 94 99 Oxygen Flow Rate 0 Oxygen Delivery Method Room Air Oxygen Flow Rate 0 Objective Labs 03/08/25 09:34 03/08/25 09:34 Labs: Laboratory Results - last 24 hr 03/10/25 03/10/25 03/10/25 07:54 12:32 17:44 POC Whole Bld Glucose 110 H D 210 H D 167 H 03/10/25 20:50 POC Whole Bld Glucose 167 H [facility] Social History household members: family Discharge Plan Discharge Plan Patient Disposition: SNF Discharge orders & Medications Prescriptions: New fluconazole 100 mg Tablet 200 mg PO DAILY Qty: 7 0RF sennosides [senna] 8.6 mg Tablet 8.6 mg PO BID Qty: 60 0RF nystatin 100,000 unit/mL Suspension 500,000 unit PO QID Qty: 100 0RF clarithromycin 500 mg Tablet 500 mg PO BID Qty: 25 0RF sucralfate 100 mg/mL Suspension 1 gm PO Q6HR Qty: 500 0RF metronidazole 500 mg Tablet 500 mg PO QID Qty: 49 0RF amoxicillin 250 mg Capsule 1,000 mg PO BID Qty: 25 0RF insulin lispro [Admelog U-100 Insulin lispro] 100 unit/mL Solution 10 unit SUBCUT AC Qty: 60 3RF insulin lispro [Admelog U-100 Insulin lispro] 100 unit/mL Solution 0 unit SUBCUT ACHS Qty: 6 0RF insulin glargine [Lantus Solostar U-100 Insulin] 100 unit/mL (3 mL) Insulin Pen 65 unit SUBCUT DAILY Qty: 60 3RF pantoprazole [Protonix] [address] for susp in packet 40 mg PO DAILY Qty: 90 0RF Visit Report/Discharge Packet Stand Alone Forms: [employer], Patient Portal/API, Stroke Signs & Symptoms, Influenza Vaccine Info, Notice of Privacy Practices, Inpatient vs Outpatient, Pneumococcal Vaccine Info, Pt. Rights & Responsibilities
[2025-03-11 08:15] VITALS: O2SAT 95
[2025-03-11 08:16] VITALS: BP 142/94; PULSE 55; O2SAT 97
--- NOTE | 2025-03-11 09:14 | CM.DPNOTE ---
DCP note PARKING MANAGER reviewed EMR per provider cleared to dc to SNF today per Martina at [facility], have a bed, can accept, no transport available. per dtr on the phone, can transport at 11am. agreeable to plan. PARKING MANAGER met with pt in room. agreeable to plan. PARKING MANAGER updated COMPETENCY EVALUATED NURSE AIDE/RN. PARKING MANAGER emailed dc sum and PASRR and meds to Martina. placed in chart. P: dc today to [facility] at 11am via dtr. CM team will continue to follow as needed for DCP Coordination JACOB Camarena
[2025-03-11] MEDS: AMOXICILLIN 250 MG CAPSULE 1000 MG PO (10:32)
[2025-03-11] MEDS: CLARITHROMYCIN 500 MG TABLET PO (10:32)
[2025-03-11] MEDS: FLUCONAZOLE 100 MG TABLET 200 MG PO (10:32)
[2025-03-11] MEDS: INSULIN GLARGINE 100 UNIT/ML 3ML PEN 65 UNIT SUBCUT (10:33)
[2025-03-11] MEDS: NYSTATIN SUSP 500,000 UNIT/5 ML UDC 500000 UNIT PO (10:33)
[2025-03-11] MEDS: PANTOPRAZOLE 40 MG VIAL IV (10:33)
[2025-03-11] MEDS: INSULIN LISPRO 100 UNIT/ML 3ML VIAL 10 UNIT SUBCUT (10:34)
== END 2025-03-11 11:30 | DRG 638 ==
LOC: ED 18:59 → AC 19:09 → ICU 21:42
PROVIDERS: Internal Medicine; Surgery; Admitting Provider Internal Medicine Infectious Disease; Emergency Provider Family Medicine; Referring Provider Family Medicine; Visit Provider Internal Medicine Infectious Disease
PROC: 0DJ08ZZ Inspection of Upper Intestinal Tract, Via Natural or Artificial Opening Endoscopic (ICD-10-PCS; principal; 2025-03-09 09:00)
DX: E11.11 Type 2 diabetes mellitus with ketoacidosis with coma (principal); B37.81 Candidal esophagitis; G93.40 Encephalopathy, unspecified; N17.9 Acute kidney failure, unspecified; N39.0 Urinary tract infection, site not specified; I48.21 Permanent atrial fibrillation; E86.9 Volume depletion, unspecified; K52.9 Noninfective gastroenteritis and colitis, unspecified; R74.01 Elevation of levels of liver transaminase levels; B96.20 Unspecified Escherichia coli [E. coli] as the cause of diseases classified elsewhere; F17.210 Nicotine dependence, cigarettes, uncomplicated
CPT/HCPCS: 36415; 71045; 71250; 80048; 80053; 80061; 81001; 82009; 82550; 82805; 82962; 83036; 83605; 83735; 84100; 84145; 84484; 85025; 85610; 85730; 87086; 87507; 87633; 87797; 93005; 93010; 96365; 96366; 96367; 96368; 96375; 96376; 97116; 97161; 97166; 97530; 97535; 99284; C8929; J0696; J1450; J1630; J1650; J1815; J2405; J2470; J2704; J7030; J7040; J7050; J7120; Q9957